=== PATIENT | male | born 1945 | race Caucasian/White ===

== ENCOUNTER 2021-06-04 09:22 | Emergency (ER) | payer OTHER ==
--- OUTSIDE RECORDS SUMMARY | 2021-06-04 09:24 | XMS REPORT | Continuity of Care Document ---
:1945 Author Organization [facility] t Address [address] [place] [address] Dr. Morillo [address] [place] [id number] Care Team Providers Name Role Phone Unavailable Unavailable Unavailable Problems This patient has no known problems. Allergies, Adverse Reactions, Alerts This patient has no known allergies or adverse reactions. Medications This patient has no known medications. Procedures This patient has no known procedures. Results This patient has no known results.
[2021-06-04] MEDS ORDERED: AMOX/K CLAV 875 MG TAB ONE (10:50)
--- NOTE | 2021-06-04 11:17 | EDPHYS ---
Physician Documentation [facility] Name: Curt Crawley Age: 76 yrs Sex: Male : 1945 Arrival Date: 06/04/2021 Time: 09:28 Bed DIS2 Private MD: DARIUS Physician Alexi Guardado HPI: 06/04 11:10 This 76 yrs old Male presents to ER via Ambulatory with complaints of Sinus rosalie Congestion. 11:10 The patient or guardian reports cough, described as mild. Onset: The symptoms/episode rosalie began/occurred 3 day(s) ago. Severity of symptoms: At their worst the symptoms were mild. Modifying factors: The symptoms are alleviated by nothing, the symptoms are aggravated by nothing. Associated signs and symptoms: Pertinent positives: rhinorrhea, sore throat. The patient has experienced a previous episode, last year. Historical: - Allergies: 09:42 No Known Allergies; ww - PMHx: 09:42 skin cancer; ww - PSHx: 09:42 Appendectomy; Repair of inguinal hernia; prostate; ww - Immunization history:: Flu vaccine is up to date. - Social history:: Smoking status: Patient denies any tobacco usage or history of. - Family history:: not pertinent. ROS: 11:10 Constitutional: Negative for fever, chills, and weight loss, Eyes: Negative for injury, rosalie pain, redness, and discharge, Neck: Negative for injury, pain, and swelling, Cardiovascular: Negative for chest pain, palpitations, and edema, Respiratory: Negative for shortness of breath, cough, wheezing, and pleuritic chest pain. 11:10 Abdomen/GI: Negative for abdominal pain, nausea, vomiting, diarrhea, and constipation, Back: Negative for injury and pain, : Negative for injury, bleeding, discharge, and swelling, MS/Extremity: Negative for injury and deformity, Skin: Negative for injury, rash, and discoloration, Neuro: Negative for headache, weakness, numbness, tingling, and seizure. 11:10 ENT: Positive for rhinorrhea, sinus congestion. Exam: 11:14 Constitutional: This is a well developed, well nourished patient who is awake, alert, rosalie and in no acute distress. Head/Face: Normocephalic, atraumatic. Eyes: Pupils equal round and reactive to light, extra-ocular motions intact. Lids and lashes normal. Conjunctiva and sclera are non-icteric and not injected. Cornea within normal limits. Periorbital areas with no swelling, redness, or edema. Neck: Trachea midline, no thyromegaly or masses palpated, and no cervical lymphadenopathy. Supple, full range of motion without nuchal rigidity, or vertebral point tenderness. No Meningismus. Chest/axilla: Normal chest wall appearance and motion. Nontender with no deformity. No lesions are appreciated. Cardiovascular: Regular rate and rhythm with a normal S1 and S2. No gallops, murmurs, or rubs. Normal PMI, no JVD. No pulse deficits. Respiratory: Lungs have equal breath sounds bilaterally, clear to auscultation and percussion. No rales, rhonchi or wheezes noted. No increased work of breathing, no retractions or nasal flaring. Abdomen/GI: Soft, non-tender, with normal bowel sounds. No distension or tympany. No guarding or rebound. No evidence of tenderness throughout. Back: No spinal tenderness. No costovertebral tenderness. Full range of motion. Male : Normal genitalia with no discharge or lesions. Skin: Warm, dry with normal turgor. Normal color with no rashes, no lesions, and no evidence of cellulitis. MS/ Extremity: Pulses equal, no cyanosis. Neurovascular intact. Full, normal range of motion. Neuro: Awake and alert, GCS 15, oriented to person, place, time, and situation. Cranial nerves II-XII grossly intact. Motor strength 5/5 in all extremities. Sensory grossly intact. Cerebellar exam normal. Normal gait. Psych: Awake, alert, with orientation to person, place and time. Behavior, mood, and affect are within normal limits. 11:14 ENT: Mouth: is normal, no acute changes, Lips: normal, moist, Oral mucosa: moist, Posterior pharynx: Tonsils: with erythema, Uvula: normal. 11:14 Neck: External neck: is normal. Vital Signs: 09:40 BP 124 / 86; Pulse 117; Resp 18; Temp 98.1; Pulse Ox 100% on R/A; Weight 71.67 kg; ww Height 5 ft. 8 in. (172.72 cm); Pain 0/10; 11:13 BP 120 / 99; Pulse 100; Resp 18; Pulse Ox 98% ; Pain 0/10; al4 09:40 Body Mass Index 24.02 (71.67 kg, 172.72 cm) ww MDM: 10:00 Patient medically screened. [facility] 11:15 Differential Diagnosis: Influenza Upper Respiratory Infection Sinusitis Pharyngitis rosalie Allergic Rhinitis. Data reviewed: vital signs, nurses notes, lab test result(s). Data interpreted: systems integration analyst: rate is 117 beats/min, rhythm is regular, Pulse oximetry: on room air is 100 %. Counseling: I had a detailed discussion with the patient and/or guardian regarding: the historical points, exam findings, and any diagnostic results supporting the discharge/admit diagnosis, lab results, radiology results, the need for outpatient follow up, for definitive care, a family practitioner. 06/04 10:47 Order name: COVID-19/FLU A+B/RSV (Document "Date of Onset" if Symptomatic) [facility] 06/04 10:48 Order name: COVID-19/FLU A+B/RSV EDMT Administered Medications: 11:15 Drug: Augmentin (Amoxicillin-Clavulanate) 875 mg Route: PO; al4 11:47 Follow up: Response: No adverse reaction al4 Disposition Summary: 06/04/21 11:16 Discharge Ordered Location: Home [facility] Problem: new rosalie Symptoms: have improved rosalie Condition: Stable rosalie Diagnosis - Acute upper respiratory infection, unspecified rosalie - Acute sinusitis, unspecified rosalie Followup: rosalie - With: Private Physician - When: 2 - 3 days - Reason: Recheck today's complaints, Continuance of care, Re-evaluation by your physician Discharge Instructions: - Discharge Summary Sheet rosalie - Sinusitis, Adult rosalie - Upper Respiratory Infection, Adult rosalie - Cool Mist Vaporizer rosalie - Upper Respiratory Infection, Adult, [id number] rosalie - Cough, Adult rosalie Forms: - Medication Reconciliation Form [facility] - Thank You Letter rosalie - Antibiotic Education [facility] - Prescription Opioid Use [facility] Prescriptions: - Bromfed DM 2-30-10 mg/5 mL Oral syrup - take 7.5 milliliter by ORAL route every 6 hours; 160 milliliter; Refills: 0, rosalie Product Selection Permitted - Augmentin 875-125 mg Oral Tablet - take 1 tablet by ORAL route every 12 hours for 10 days; 20 tablet; Refills: 0, [facility] Product Selection Permitted Signatures: DispatchAlexi Louis MD MD cha Ledbetter, Alexis al4 Wood, Whitney, RN RN ww
--- NOTE | 2021-06-04 11:17 | ER ---
Nurse's Notes [facility] Name: Curt Crawley Age: 76 yrs Sex: Male : 1945 Arrival Date: 06/04/2021 Time: 09:28 Bed DIS2 Private MD: Diagnosis: Acute upper respiratory infection, unspecified;Acute sinusitis, unspecified Presentation: 06/04 09:40 Chief complaint: Patient states: Sinus congestion that started on Friday. Coronavirus ww screen: Vaccine status: Patient reports receiving the 2nd dose of the covid vaccine. Client denies travel out of the [place] in the last 14 days. Ebola Screen: Patient negative for fever greater than or equal to 101.5 degrees Fahrenheit, and additional compatible Ebola Virus Disease symptoms Patient denies exposure to infectious person. Patient denies travel to an Ebola-affected area in the 21 days before illness onset. Initial Sepsis Screen: Does the patient meet any 2 criteria? HR > 90 bpm. Does the patient have a suspected source of infection? No. Patient's initial sepsis screen is negative. Risk Assessment: Do you want to hurt yourself or someone else? Patient reports no desire to harm self or others. Onset of symptoms was June 02, 2021. 09:40 Method Of Arrival: Ambulatory ww 09:40 Acuity: JENS 4 ww Triage Assessment: 09:42 General: Appears in no apparent distress. comfortable, well groomed, well developed, ww well nourished, Behavior is calm, cooperative, appropriate for age. Pain: Denies pain. EENT: Reports nasal congestion. Neuro: No deficits noted. Level of Consciousness is awake, alert, obeys commands, Oriented to person, place, time, situation, Appropriate for age Gait is steady, Speech is normal. Cardiovascular: Denies chest pain, shortness of breath, Capillary refill < 3 seconds. Respiratory: Airway is patent Respiratory effort is even, unlabored, Respiratory pattern is regular, symmetrical, GI: No deficits noted. No signs and/or symptoms were reported involving the gastrointestinal system. : No deficits noted. No signs and/or symptoms were reported regarding the genitourinary system. Derm: No deficits noted. No signs and/or symptoms reported regarding the dermatologic system. Skin is intact, Skin is pink, warm \T\ dry. Musculoskeletal: No deficits noted. Historical: - Allergies: 09:42 No Known Allergies; ww - PMHx: 09:42 skin cancer; ww - PSHx: 09:42 Appendectomy; Repair of inguinal hernia; prostate; ww - Immunization history:: Flu vaccine is up to date. - Social history:: Smoking status: Patient denies any tobacco usage or history of. - Family history:: not pertinent. Screenin:05 Abuse screen: Denies threats or abuse. Nutritional screening: No deficits noted. al4 Tuberculosis screening: No symptoms or risk factors identified. 11:46 Fall Risk No fall in past 12 months (0 pts). No IV (0 pts). Ambulatory Aid- None/Bed al4 Rest/Nurse Assist (0 pts). Gait- Normal/Bed Rest/Wheelchair (0 pts) Mental Status- Oriented to own ability (0 pts). Assessment: 10:04 General: Appears in no apparent distress. comfortable, Behavior is calm, cooperative, al4 appropriate for age. Pain: Denies pain. Neuro: Level of Consciousness is awake, alert, obeys commands. Cardiovascular: Heart tones present Capillary refill < 3 seconds Patient's skin is warm and dry. Respiratory: Airway is patent Respiratory effort is even, unlabored, Respiratory pattern is regular, symmetrical, Breath sounds are clear bilaterally. GI: No signs and/or symptoms were reported involving the gastrointestinal system. : No signs and/or symptoms were reported regarding the genitourinary system. EENT: Reports nasal congestion nasal discharge sneezing, coughing, watery eyes. Derm: No signs and/or symptoms reported regarding the dermatologic system. Musculoskeletal: No signs and/or symptoms reported regarding the musculoskeletal system. 11:00 Reassessment: Patient and/or family updated on plan of care and expected duration. Pain al4 level reassessed. Patient is alert, oriented x 3, equal unlabored respirations, skin warm/dry/pink. Patient is alert/active/playful, equal unlabored respirations, skin warm/dry/pink. Patient denies pain at this time. 11:34 Reassessment: please call [phone] with test results. al4 Vital Signs: 09:40 BP 124 / 86; Pulse 117; Resp 18; Temp 98.1; Pulse Ox 100% on R/A; Weight 71.67 kg; ww Height 5 ft. 8 in. (172.72 cm); Pain 0/10; 11:13 BP 120 / 99; Pulse 100; Resp 18; Pulse Ox 98% ; Pain 0/10; al4 09:40 Body Mass Index 24.02 (71.67 kg, 172.72 cm) ED Course: 09:28 Patient arrived in ED. am2 09:42 Triage completed. ww 09:42 Arm band placed on right wrist. ww 09:46 Patient placed in an exam room, on a stretcher. ll1 10:00 Alexi Guardado MD is Attending Physician. rosalie 10:21 Maurizio Araujo is Primary Nurse. al4 11:46 Bed in low position. Call light in reach. patients at bedside. al4 11:46 No provider procedures requiring assistance completed. Patient did not have IV access al4 during this emergency room visit. Administered Medications: 11:15 Drug: Augmentin (Amoxicillin-Clavulanate) 875 mg Route: PO; al4 11:47 Follow up: Response: No adverse reaction al4 Outcome: 11:16 Discharge ordered by . [facility] 11:46 Discharged to home ambulatory, with significant other. al4 11:46 Condition: stable 11:46 Discharge instructions given to patient, significant other, Instructed on discharge instructions, follow up and referral plans. medication usage, Demonstrated understanding of instructions, follow-up care, medications. 11:49 Patient left the ED. al4 Signatures: Alexi Guardado MD MD cha Moreno, Amanda am2 Alyssa Nolasco, LANIE RN [facility] Maurizio Araujo al4 Radha Duncan RN RN Corrections: (The following items were deleted from the chart) 10:22 10:04 EENT: Reports nasal congestion nasal discharge sneezing, coughing. al4 al4 11:43 11:13 BP 120 / 99; Pulse 100bpm; Resp 22bpm; Pulse Ox 98%; Pain 0/10; al4 al4
[2021-06-04 12:08] VITALS: TEMP 98.1
[2021-06-04 12:09] VITALS: BP 120/99; O2SAT 98
[2021-06-04 12:35] LABS: SARS-COV-2 RT PCR NEGATIVE (NEGATIVE)
== END 2021-06-04 11:49 | disposition home or self-care (01) ==
LOC: ER 09:22
DX: J01.90 Acute sinusitis, unspecified (principal); J06.9 Acute upper respiratory infection, unspecified; Z20.822 Contact with and (suspected) exposure to COVID-19
CPT/HCPCS: 0241U; 99283

== ENCOUNTER 2022-08-28 09:25 | Emergency (ER) | payer OTHER ==
--- OUTSIDE RECORDS SUMMARY | 2022-08-28 09:30 | XMS REPORT | Continuity of Care Document ---
:1945 Author Organization [facility] t Address [address] [place] [id number] Care Team Providers Name Role Phone Unavailable Unavailable Unavailable Problems This patient has no known problems. Allergies, Adverse Reactions, Alerts This patient has no known allergies or adverse reactions. Medications This patient has no known medications. Procedures This patient has no known procedures. Results This patient has no known results.
--- NOTE | 2022-08-28 12:11 | EDPHYS ---
Physician Documentation [facility] Name: Curt Crawley Age: 77 yrs Sex: Male : 1945 Arrival Date: 08/28/2022 Time: 09:30 Bed 11 Private MD: ED Physician Allan Gonzalez HPI: 08/28 09:58 This 77 yrs old Male presents to ER via Ambulatory with complaints of Rib pain. sb4 09:58 Onset: The symptoms/episode began/occurred 5 day(s) ago. Associated signs and symptoms: sb4 Pertinent positives: The patient does not have any pertinent positive signs or symptoms associated with pediatric illness. Pertinent negatives: abdominal pain, chest pain, fever, headache, shortness of breath, sore throat, wheezing. Modifying factors: The patient symptoms are alleviated by nothing, the patient symptoms are aggravated by coughing, movement. The patient has not experienced similar symptoms in the past. The patient has been recently seen by a physician: in [place]. Patient states 1 week ago, his allergies were flaring up. He went to [place] where he tested negative for covid/flu and was prescribed claritin. He states the allergy like symptoms have since resolved but the repetitive coughing and sneezing have caused his left lower ribs to hurt.. Historical: - Allergies: 09:48 No Known Allergies; aa5 - PMHx: 09:48 skin cancer; aa5 - PSHx: 09:48 Appendectomy; prostate; Repair of inguinal hernia; aa5 - Immunization history:: Adult Immunizations unknown. - Social history:: Smoking status: Patient denies any tobacco usage or history of. ROS: 09:58 Constitutional: Negative for fever, chills, and weight loss, Eyes: Negative for injury, sb4 pain, redness, and discharge, ENT: Negative for injury, pain, and discharge, Cardiovascular: Negative for chest pain, palpitations, and edema, Respiratory: Negative for shortness of breath, cough, wheezing, and pleuritic chest pain, Abdomen/GI: Negative for abdominal pain, nausea, vomiting, diarrhea, and constipation, Skin: Negative for injury, rash, and discoloration, Neuro: Negative for headache, weakness, numbness, tingling, and seizure. 09:58 Back: Positive for pain at rest, pain with movement, Negative for injury or acute deformity, decreased range of motion. 09:58 MS/extremity: Positive for left sided rib pain. Exam: 09:58 Constitutional: This is a well developed, well nourished patient who is awake, alert, sb4 and in no acute distress. Head/Face: Normocephalic, atraumatic. Eyes: Extra-ocular motions intact. Periorbital areas with no swelling, redness, or edema. ENT: Mucous membranes moist. Cardiovascular: Regular rate and rhythm with a normal S1 and S2. Respiratory: Lungs have equal breath sounds bilaterally, clear to auscultation and percussion. No rales, rhonchi or wheezes noted. No increased work of breathing, no retractions or nasal flaring. Abdomen/GI: Soft, non-tender, no distension. 09:58 Chest/axilla: Exam negative for acute changes, abrasion, deformity, flail chest, Inspection: normal, Palpation: is normal. 09:58 Musculoskeletal/extremity: Exam is negative for acute changes, abrasion, deformity, ecchymosis, edema, erythema, swelling. Vital Signs: 09:46 BP 138 / 93; Pulse 108; Resp 16 S; Temp 98.4(TE); Pulse Ox 98% on R/A; Weight 62.14 kg aa5 (R); Height 5 ft. 8 in. (R); 09:46 Body Mass Index 20.83 (62.14 kg, 172.72 cm) aa5 MDM: 09:52 Patient medically screened. sb4 09:58 Differential diagnosis: rib fracture, pleurisy, muscle strain. sb4 12:07 ED course: awaiting radiology read. images taken at 1033.. sb4 12:08 Independent interpretation of the following test(s) in the Emergency Department sb4 Radiology Department Ultrasound: My interpretation is my interpretation of the rib series images is no acute fracture. 03 09:58 Order name: Ribs Left XRAY sb4 Administered Medications: No medications were administered Disposition Summary: 08/28/22 12:10 Discharge Ordered Location: Home sb4 Problem: an ongoing problem sb4 Symptoms: are unchanged sb4 Condition: Stable sb4 Diagnosis - Strain of muscle and tendon of front wall of thorax sb4 Followup: sb4 - With: Private Physician - When: 2 - 3 days - Reason: Recheck today's complaints, Re-evaluation by your physician Discharge Instructions: - Discharge Summary Sheet sb4 - Muscle Strain, [id number] sb4 Forms: - Antibiotic Education sb4 - Prescription Opioid Use sb4 - Medication Reconciliation Form sb4 - Thank You Letter sb4 Signatures: Dispatcher [employer] Saadia Gunter, RN RN aa5 Princess Duke, ADA CABALLERO sb4
--- NOTE | 2022-08-28 12:11 | ER ---
Nurse's Notes [facility] Name: Curt Crawley Age: 77 yrs Sex: Male : 1945 Arrival Date: 08/28/2022 Time: 09:30 Bed 11 Private MD: Diagnosis: Strain of muscle and tendon of front wall of thorax Presentation: 08/28 09:46 Chief complaint: Patient states: "I was sneezing the other day and went to the [place] and aa5 they gave me Claritin and I've been better since then but the sneezing hurt my ribs and I think I twisted wrong or something". Coronavirus screen: At this time, the client does not indicate any symptoms associated with coronavirus-19. Ebola Screen: Patient denies travel to an Ebola-affected area in the 21 days before illness onset. Initial Sepsis Screen: Does the patient meet any 2 criteria? HR > 90 bpm. Does the patient have a suspected source of infection? No. Patient's initial sepsis screen is negative. Risk Assessment: Do you want to hurt yourself or someone else? Patient reports no desire to harm self or others. Onset of symptoms was August 2022. 09:46 Acuity: JENS 4 aa5 09:46 Method Of Arrival: Ambulatory aa5 Historical: - Allergies: 09:48 No Known Allergies; aa5 - PMHx: 09:48 skin cancer; aa5 - PSHx: 09:48 Appendectomy; prostate; Repair of inguinal hernia; aa5 - Immunization history:: Adult Immunizations unknown. - Social history:: Smoking status: Patient denies any tobacco usage or history of. Vital Signs: 09:46 BP 138 / 93; Pulse 108; Resp 16 S; Temp 98.4(TE); Pulse Ox 98% on R/A; Weight 62.14 kg aa5 (R); Height 5 ft. 8 in. (R); 09:46 Body Mass Index 20.83 (62.14 kg, 172.72 cm) aa5 ED Course: 09:30 Patient arrived in ED. mr 09:31 Princess Duke [facility] sb4 09:32 Allan Gonzalez MD is Attending Physician. sb4 09:46 Arm band placed on. aa5 09:48 Triage completed. aa5 10:51 Ribs Left XRAY In Process Unspecified. EDMS Administered Medications: No medications were administered Outcome: 12:10 Discharge ordered by MD. yap Signatures: Dispatcher [employer] EDOmaira Zamora DkSaadia, RN RN aa5 Princess Duke, ADA PAIsaac yap
--- NOTE | 2022-08-28 12:23 | RAD REPORT ---
EXAM DESCRIPTION: RAD - Ribs Left - 08/28/2022 10:49 am CLINICAL HISTORY: PAIN COMPARISON: Chest Pa And Lat (2 Views) dated 05/07/2019 TECHNIQUE: Left ribs, 4 views. FINDINGS: No displaced rib fracture is evident. No aggressive rib lesion. No underlying pneumothorax, effusion, infiltrate or pulmonary contusion. IMPRESSION: No acute displaced left rib fractures.
[2022-08-28 15:14] VITALS: BP 138/93; TEMP 98.4; O2SAT 98
== END 2022-08-28 12:27 | disposition home or self-care (01) ==
LOC: ER 09:25
DX: S29.011A Strain of muscle and tendon of front wall of thorax, initial encounter (principal)

== ENCOUNTER 2022-10-28 07:27 | Emergency (ER) | payer OTHER ==
--- OUTSIDE RECORDS SUMMARY | 2022-10-28 07:29 | XMS REPORT | Continuity of Care Document ---
:1945 Author Organization [facility] t Address [address] [place] [address] [address] [place] [address] Care Team Providers Name Role Phone Pcp, Patient Does Not Have A Primary Care Physician +[id number] SAMAN LEMONS Attending Clinician Unavailable Saman Morrell Attending Clinician Payers Payer Name Policy Type Policy Number Effective Date Expiration Date S lukas MEDICARE PART A [id number] 2011 \T\ B 00:00:00 Problems This patient has no known problems. Allergies, Adverse Reactions, Alerts Allergy Allergy Status Severity Reaction(s) Onset Inactive Treating Comm ents Source Name Type Date Date Clinician NO KNOWN Drug Active Univers ALLERGIE Class ity of S [facility] Social History Social Habit Start Date Stop Date Quantity Comments Source History of Cigarette Smoker Universi ty of tobacco use [facility] Exposure to 2022-10-14 2022-10-24 Not sure University SARS-CoV-2 00:00:00 14:55:00 [facility] (event) [place] Alcohol intake 2022-10-24 2022-10-24 Current University of 00:00:00 00:00:00 non-drinker of [facility] alcohol (finding) Branch Tobacco use and 2015-02-10 2015-02-10 Smokeless tobacco Un iversity of exposure 00:00:00 00:00:00 non-user [facility] Sex Ass[birth year] At [birth year] Universit y of 00:00:00 00:00:00 [facility] Smoking Status Start Date Stop Date Source Ex-smoker 2015-02-10 00:00:00 2015-02-10 00:00:00 [facility] Medical Branch Medications Ordered Filled Start Stop Current Ordering Indication Dosage Frequency Signature Comments Components Source Medication Medication Date Date Medication? Clinician (SIG) Name Name diandra 2022- No 1000mg 1,000 mg, Univers en 10-24 05-11 Oral, ity of (TYLENOL) 21:45: 21:09 ONCE, [place] :00 dose, On Medical 1,000 mg [place] Branch 10/24/22 at 1645, Routine Diclofenac Yes [id number] Apply to [facility] Sodium 10-24 [id number] area(s) 2 ity of (VOLTAREN) 00:00: (two) [place] 1 % gel 00 times Medical daily. Branch traMADol 50 2018-06 Yes [id number] 50mg Take 1 Univers mg tablet 2-06 tablet by ity o f 00:00: mouth [place] 00 every 6 Medical (six) Branch hours as needed (pain). proMETHazin 2018-06 Yes [id number] 25mg Take 1 Univers e 25 mg 2-06 tablet by ity of tablet 00:00: mouth [place] 00 every 6 Medical (six) Branch hours as needed for Nausea and Vomiting (N/V). Miconazole Yes Apply to [facility] vers Nitrate 2 % 2-06 area(s). ity of AerP 15:41: [address] finasteride Yes 5mg Take 5 mg U nivers (PROSCAR) 5 2-06 by mouth ity of mg tablet 14:38: daily. [address] atorvastati Yes 40mg Take 40 mg Univers n (LIPITOR) 2-06 by mouth ity of 40 mg 14:38: at [place] tablet 53 bedtime. Medical Branch tamsulosin Yes Take by [facility] ers (FLOMAX) 2-06 mouth ity of 0.4 mg 24 14:38: daily. [facility] 53 Medical Branch OMEPRAZOLE Yes Take by [facility] ers ORAL 2-06 mouth. ity of 14:38: [address] Branch desonide Yes Apply to [facility] (DESOWEN) 9-27 affected ity of 0.05 % 14:47: area(s). [place] cream 32 [facility] methylPREDN Yes 84mg Take 21 Uni vers ISolone 9-27 tablets by ity of (MEDROL, 00:00: mouth [place] JOSE ALBERTO,) 4 mg 00 SEE-INSTRU Med ical tablets CTIONS. Branch follow package directions KCL Yes 20meq Take 1 Univers (KLOR-CON 7-10 tablet by ity o f M20) 20 mEq 00:00: mouth 2 [place] tablet 00 (two) Medical times Branch daily. gabapentin Yes [id number] 300mg Take 1 Univers (NEURONTIN) 5-11 capsule by it y of 300 mg 00:00: mouth 3 [place] capsule 00 (three) Medical times Branch daily. ibuprofen Yes 400mg Take 1 Tab U nivers (MOTRIN) 8-28 by mouth ity of 400 mg 00:00: every 6 [place] tablet 00 (six) Medical hours as Branch needed for Pain (scale 4-6). nystatin Yes [id number] Apply to U nivers (MYCOSTATIN 8-28 area(s) 2 ity of ) 100,000 00:00: (two) [place] unit/gram 00 times Medical cream daily. [place] Immunizations Ordered Filled Immunization Date Status Comments [facility] e Immunization Name Name Influenza Virus 2016-03-20 Completed Universit y of Vaccine 00:00:00 [facility] Vital Signs Vital Name Observation Time Observation Value Comments Source Systolic blood 2022-10-24 19:57:00 133 mm[Hg] Univer sity of pressure [facility] Diastolic blood 2022-10-24 19:57:00 99 mm[facility]Hg] [facility] 2022-10-24 19:57:00 109 /min [facility] Body temperature 2022-10-24 19:57:00 36.83 Ritu [facility] rate 2022-10-24 19:57:00 18 /min [facility] Body height 2022-10-24 19:57:00 172.7 cm [facility] Body weight 2022-10-24 19:57:00 61.236 kg [facility] BMI 2022-10-24 19:57:00 20.53 kg/m2 [facility] Oxygen saturation in 2022-10-24 19:57:00 98 /min University Arterial blood by [facility] Pulse oximetry Branch Procedures Procedure Date / Time Performed Performing Clinician Sourc e CONSENT/REFUSAL FOR 2022-10-24 19:55:51 Doctor Unassigned, No Un [facility] DIAGNOSIS AND Name Medical Branch TREATMENT Encounters Start End Encounter Admission Attending Care Care Encounter Source Date/Time Date/Time Type Type Clinicians Facility Department ID 2022-10-24 2022-10-24 [facility] [id number] [facility] 14:59:00 16:21:00 SAMAN ity of [facility] 2022-10-24 2022-10-24 [facility] [id number] [facility] 14:59:00 16:21:00 Saman VELAZQUEZ [id number] ity [facility] [id number] [facility] [id number] [facility] 084 Branch Results This patient has no known results.
--- NOTE | 2022-10-28 08:22 | RAD REPORT ---
EXAM DESCRIPTION: US - Extrem Venous W Compress Hua - 10/28/2022 8:11 am CLINICAL HISTORY: PAIN COMPARISON: No comparisons TECHNIQUE: Real-time sonographic evaluation of the lower extremity deep venous systems was performed using color Doppler, grayscale, and compression. FINDINGS: Bilateral lower extremities. Normal compressibility, flow augmentation, phasic flow and spontaneous flow is identified in both the left and right lower extremity deep venous systems. No intraluminal filling defects seen. IMPRESSION: No DVT in either lower extremity.
--- NOTE | 2022-10-28 08:23 | RAD REPORT ---
EXAM DESCRIPTION: US - Lower Extremity Arterial Bilat - 10/28/2022 8:11 am CLINICAL HISTORY: Swelling, pain COMPARISON: None FINDINGS: The common femoral, superficial femoral and popliteal arteries bilaterally demonstrate triphasic wave forms The posterior tibial and dorsalis pedis arteries demonstrate biphasic waveforms bilaterally. IMPRESSION: No flow limiting arterial stenosis within either lower extremity.
--- NOTE | 2022-10-28 08:32 | EDPHYS ---
Physician Documentation [facility] Name: Curt Crawley Age: 77 yrs Sex: Male : 1945 Arrival Date: 10/28/2022 Time: 07:27 Bed 5 Private MD: ED Physician Jeffrey Palomo HPI: 10/28 07:45 This 77 yrs old Male presents to ER via Ambulatory with complaints of Feet Swelling. rn 07:45 The patient presents with pain. The complaints affect the left foot, right foot. Onset: rn The symptoms/episode began/occurred 3 day(s) ago. Modifying factors: The symptoms are alleviated by nothing, the symptoms are aggravated by weight bearing, movement. Associated signs and symptoms: Pertinent negatives: calf tenderness, fever, swelling, warmth, weakness. Severity of symptoms: At their worst the symptoms were mild, in the emergency department the symptoms are unchanged. The patient has not experienced similar symptoms in the past. The patient has not recently seen a physician. Pt reports bilateral foot pain, no injury, no fever, no swelling. Reports is sick and has been on his feet more than usual, hurts on bottom of feet. No fever. Went to outside ER this weekend, given diclofenac ointment, is to be discharged soon and wants to make sure he is ok and feels better to take care of her. . Historical: - Allergies: 07:40 No Known Allergies; iw - PMHx: 07:34 skin cancer; iw - PSHx: 07:34 Appendectomy; prostate; Repair of inguinal hernia; iw - Immunization history:: Adult Immunizations. - Family history:: not pertinent. - Social history:: Smoking status: Patient denies any tobacco usage or history of. - Hospitalizations: : No recent hospitalization is reported. ROS: 07:45 Constitutional: Negative for fever, chills, and weight loss, Cardiovascular: Negative rn for chest pain, palpitations, and edema, Respiratory: Negative for shortness of breath, cough, wheezing, and pleuritic chest pain, Abdomen/GI: Negative for abdominal pain, nausea, vomiting, diarrhea, and constipation, Back: Negative for injury and pain, MS/Extremity: + pain to bilateral feet Skin: Negative for injury, rash, and discoloration, Neuro: Negative for headache, weakness, numbness, tingling, and seizure. Exam: 07:45 Constitutional: This is a well developed, well nourished patient who is awake, alert, rn and in no acute distress. Cardiovascular: Regular rate and rhythm. No pulse deficits. Respiratory: No increased work of breathing, no retractions or nasal flaring. Abdomen/GI: Soft, non-tender Skin: Warm, dry, no cyanosis MS/ Extremity: NV intact. Full, normal range of motion. Equal circumference. NO cyanosis Neuro: Awake and alert, GCS 15 Vital Signs: 07:35 Resp 16; Temp 98.1; Pulse Ox 100% on R/A; iw 07:36 BP 152 / 100; Pulse 99; Resp 16; Temp 98.2; Pulse Ox 98% on R/A; iw MDM: 07:30 Patient medically screened. rn 08:29 Differential diagnosis: sprain, DVT, poor circulation, PVD. Data reviewed: vital signs, rn nurses notes, radiologic studies, doppler, ultrasound, and as a result, I will discharge patient. Counseling: I had a detailed discussion with the patient and/or guardian regarding: the historical points, exam findings, and any diagnostic results supporting the discharge/admit diagnosis, radiology results, the need for outpatient follow up, to return to the emergency department if symptoms worsen or persist or if there are any questions or concerns that arise at home. Special discussion: I discussed with the patient/guardian in detail that at this point there is no indication for admission to the hospital. It is understood, however, that if the symptoms persist or worsen the patient needs to return immediately for re-evaluation. ED course: NO acute findings on u/s of legs. No trauma. Will dc home with OTC meds and return precautions as well as pcp f/u. . 10/28 07:44 Order name: Extrem Venous W Compression Hua US; Complete Time: 08:29 rn 10/28 07:44 Order name: Lower Extremity Arterial Bilat US; Complete Time: : rn Administered Medications: No medications were administered Disposition Summary: 10/28/22 08:32 Discharge Ordered Location: Home rn Problem: new rn Symptoms: are unchanged rn Condition: Stable rn Diagnosis - Pain in left foot rn - Pain in right foot rn Followup: rn - With: Private Physician - When: As needed - Reason: Recheck today's complaints, Re-evaluation by your physician Discharge Instructions: - Discharge Summary Sheet rn - Musculoskeletal Pain rn - Foot Pain rn Forms: - Medication Reconciliation Form rn - Thank You Letter rn - Antibiotic rn [facility] - Prescription Opioid Use rn Signatures: Dispatcher [employer] Sveta Rodriguez RN RN iw Nieto, Roman, MD MD rn Prokisch, Amanda, RN RN ap3
--- NOTE | 2022-10-28 08:32 | ER ---
Nurse's Notes [facility] Name: Curt Crawley Age: 77 yrs Sex: Male : 1945 Arrival Date: 10/28/2022 Time: 07:27 Bed 5 Private MD: Diagnosis: Pain in left foot;Pain in right foot Presentation: 10/28 07:36 Chief complaint: Patient states: juan antonio feet pain and swelling, he was seen at [facility] iw on October 24 and was given diclofenac gel. Coronavirus screen: At this time, the client does not indicate any symptoms associated with coronavirus-19. Ebola Screen: Patient negative for fever greater than or equal to 101.5 degrees Fahrenheit, and additional compatible Ebola Virus Disease symptoms Patient denies exposure to infectious person. Patient denies travel to an Ebola-affected area in the 21 days before illness onset. No symptoms or risks identified at this time. Initial Sepsis Screen: Does the patient meet any 2 criteria? No. Patient's initial sepsis screen is negative. Does the patient have a suspected source of infection? No. Patient's initial sepsis screen is negative. Risk Assessment: Do you want to hurt yourself or someone else? Patient reports no desire to harm self or others. Onset of symptoms was October 28, 2022. 07:36 Method Of Arrival: Ambulatory iw 07:36 Acuity: JENS 3 iw Historical: - Allergies: 07:40 No Known Allergies; iw - PMHx: 07:34 skin cancer; iw - PSHx: 07:34 Appendectomy; prostate; Repair of inguinal hernia; iw - Immunization history:: Adult Immunizations. - Family history:: not pertinent. - Social history:: Smoking status: Patient denies any tobacco usage or history of. - Hospitalizations: : No recent hospitalization is reported. Screenin:50 [facility] ED Fall Risk Assessment (Adult) History of falling in the last 3 months, ap3 including since admission No falls in past 3 months (0 pts). Abuse screen: Denies threats or abuse. Nutritional screening: No deficits noted. Tuberculosis screening: No symptoms or risk factors identified. Assessment: 07:50 General: Appears in no apparent distress. Behavior is calm, cooperative, appropriate ap3 for age. Pain: Complains of pain in right foot and left foot. Neuro: Level of Consciousness is awake, alert, obeys commands, Oriented to person, place, time, situation. Cardiovascular: Pulses are palpable in right dorsalis pedis artery and left dorsalis pedis artery. Respiratory: Airway is patent Respiratory effort is even, unlabored, Respiratory pattern is regular, symmetrical. Vital Signs: 07:35 Resp 16; Temp 98.1; Pulse Ox 100% on R/A; iw 07:36 BP 152 / 100; Pulse 99; Resp 16; Temp 98.2; Pulse Ox 98% on R/A; iw ED Course: 07:29 Patient arrived in ED. rg4 07:30 Jeffrey Palomo MD is Attending Physician. rn 07:39 Triage completed. iw 07:40 Arm band placed on. iw 07:45 Alysha Neely RN is Primary Nurse. ap3 07:50 Patient has correct armband on for positive identification. Placed in gown. Bed in low ap3 position. Call light in reach. Side rails up X 1. Pulse ox on. NIBP on. Door closed. Noise minimized. Warm blanket given. 07:51 ultrasound at bedside. ap3 08:13 Extrem Venous W Compression Juan Antonio US In Process Unspecified. EDMS 08:13 Lower Extremity Arterial Bilat US In Process Unspecified. EDMS 08:47 No provider procedures requiring assistance completed. Patient did not have IV access ap3 during this emergency room visit. Administered Medications: No medications were administered Medication: 07:50 VIS not applicable for this client. ap3 Outcome: 08:32 Discharge ordered by . rn 08:47 Discharged to home ambulatory. ap3 08:47 Condition: good 08:47 Discharge instructions given to patient, Instructed on discharge instructions, follow up and referral plans. Demonstrated understanding of instructions, follow-up care. 08:55 Patient left the ED. ap3 Signatures: Dispatcher [employer] Sveta Rodriguez RN RN Jeffrey Palomo MD MD rn Garcia, Rubi [facility] Alysha Neely RN RN ap3
[2022-10-28 09:01] VITALS: BP 152/100; TEMP 98.2; O2SAT 98
== END 2022-10-28 08:55 | disposition home or self-care (01) ==
LOC: ER 07:27
DX: M79.672 Pain in left foot (principal); M79.671 Pain in right foot
CPT/HCPCS: 93925; 93970

== ENCOUNTER 2022-11-03 09:24 | Emergency (ER) | payer OTHER ==
--- OUTSIDE RECORDS SUMMARY | 2022-11-03 09:27 | XMS REPORT | Continuity of Care Document ---
:[address] [facility] t Address [address] [place] [address] [address] [place] [address] Care Team Providers Name Role Phone Pcp, Patient Does Not Have A Primary Care Physician +1-000-0 00-0000 SAMAN LEMONS Attending Clinician Unavailable Saman Morrell Attending Clinician Payers Payer Name Policy Type Policy Number Effective Date Expiration Date Mraal gaytan MEDICARE PART A [id number] 2011 \T\ B 00:00:00 Problems This patient has no known problems. Allergies, Adverse Reactions, Alerts Allergy Allergy Status Severity Reaction(s) Onset Inactive Treating Comm ents Source Name Type Date Date Clinician NO KNOWN Drug Active Univers ALLERGIE Class ity of S [facility] Social History Social Habit Start Date Stop Date Quantity Comments Source History of Cigarette Smoker Universi ty of tobacco use [facility] Exposure to 2022-10-14 2022-10-24 Not sure University SARS-CoV-2 00:00:00 14:55:[address] [facility] (event) [place] Alcohol intake 2022-10-24 2022-10-24 Current University of 00:00:00 00:00:00 non-drinker of [facility] alcohol (finding) Branch Tobacco use and 2015-02-10 2015-02-10 Smokeless tobacco Un iversity of exposure 00:00:00 00:00:00 non-user [facility] Sex Assigned At [birth year] Universit y of 00:00:00 00:00:00 [facility] Smoking Status Start Date Stop Date Source Ex-smoker 2015-02-10 00:00:00 2015-02-10 00:00:00 [facility] [place] [facility] Medications Ordered Filled Start Stop Current Ordering Indication Dosage Frequency Signature Comments Components Source Medication Medication Date Date Medication? Clinician (SIG) Name Name diandra 2022- No 1000mg 1,000 mg, Univers en 10-24 05-11 Oral, ity of (TYLENOL) 21:45: 21:09 ONCE, 1 [place] tablet [place] :00 dose, On Medical 1,000 mg [place] Branch 10/24/22 at 1645, Routine Diclofenac Yes [id number] Apply to [facility] Sodium 10-24 [id number] area(s) 2 ity of (VOLTAREN) 00:00: (two) [place] 1 % gel 00 times Medical daily. Branch traMADol 50 2018-06 Yes [id number] 50mg Take 1 Univers mg tablet 2-06 tablet by ity o f 00:00: mouth [place] 00 every 6 Medical (six) Branch hours as needed (pain). proMETHazin 2018-06 Yes [id number] 25mg Take 1 Univers e 25 mg 2-06 tablet by ity of tablet 00:00: mouth [place] 00 every 6 Medical (six) Branch hours as needed for Nausea and Vomiting (N/V). Miconazole Yes Apply to [facility] vers Nitrate 2 % 2-06 area(s). ity of AerP 15:41: [address] finasteride Yes 5mg Take 5 mg U nivers (PROSCAR) 5 2-06 by mouth ity of mg tablet 14:38: daily. [address] atorvastati Yes 40mg Take 40 mg Univers n (LIPITOR) 2-06 by mouth ity of 40 mg 14:38: at [place] tablet 53 bedtime. Medical Branch tamsulosin Yes Take by [facility] ers (FLOMAX) 2-06 mouth ity of 0.4 mg 24 14:38: daily. [place] [address] Medical Branch OMEPRAZOLE Yes Take by [facility] ers ORAL 2-06 mouth. ity of 14:38: [address] Branch desonide Yes Apply to [place] [facility] (DESOWEN) 9-27 affected ity of 0.05 % 14:47: area(s). [place] cream 32 [facility] methylPREDN Yes 84mg Take 21 Uni vers ISolone 9-27 tablets by ity of (MEDROL, 00:00: mouth [place] JOSE ALBERTO,) 4 mg 00 SEE-INSTRU Med ical tablets CTIONS. Branch follow package directions KCL Yes 20meq Take 1 Univers (KLOR-CON 7-10 tablet by ity o f M20) 20 mEq 00:00: mouth 2 [place] tablet 00 (two) Medical times Branch daily. gabapentin Yes [id number] 300mg Take 1 Univers (NEURONTIN) 5-11 capsule by it y of 300 mg 00:00: mouth 3 [place] capsule 00 (three) Medical times Branch daily. ibuprofen Yes 400mg Take 1 Tab U nivers (MOTRIN) 8-28 by mouth ity of 400 mg 00:00: every 6 [place] tablet 00 (six) Medical hours as Branch needed for Pain (scale 4-6). nystatin Yes [id number] Apply to U nivers (MYCOSTATIN 8-28 area(s) 2 ity of ) 100,000 00:00: (two) [place] unit/gram 00 times Medical cream daily. [place] Immunizations Ordered Filled Immunization Date Status Comments [facility] e Immunization Name Name Influenza Virus 2016-03-20 Completed Universit y of Vaccine 00:00:00 [facility] Vital Signs Vital Name Observation Time Observation Value Comments Source Systolic blood 2022-10-24 19:57:00 133 mm[Hg] Univer sity of pressure [facility] Diastolic blood 2022-10-24 19:57:00 99 mm[Hg] [facility] 2022-10-24 19:57:00 109 /min [facility] Body temperature 2022-10-24 19:57:00 36.83 Ritu [facility] Res[facility] rate 2022-10-24 19:57:00 18 /min [facility] Body height 2022-10-24 19:57:00 172.7 cm [facility] Body weight 2022-10-24 19:57:00 61.236 kg [facility] BMI 2022-10-24 19:57:00 20.53 kg/m2 [facility] Oxygen saturation in 2022-10-24 19:57:00 98 /min University Arterial blood by [facility] Pulse oximetry Branch Procedures Procedure Date / Time Performed Performing Clinician Sourc e CONSENT/REFUSAL FOR 2022-10-24 19:55:51 Doctor Unassigned, No Un [facility] DIAGNOSIS AND Name Medical Branch TREATMENT Encounters Start End Encounter Admission Attending Care Care Encounter Source Date/Time Date/Time Type Type Clinicians Facility Department ID 2022-10-24 2022-10-24 [facility] [id number] [facility] 14:59:00 16:21:00 SAMAN ity of [facility] 2022-10-24 2022-10-24 Emergency [facility] [id number] [facility] 14:59:00 16:21:00 Saman VELAZQUEZ [id number] ity [facility] [id number] [facility] [id number] [facility] 084 Branch Results This patient has no known results.
--- NOTE | 2022-11-03 09:41 | EDPHYS ---
Physician Documentation [facility] Name: Curt Crawley Age: 77 yrs Sex: Male : 1945 Arrival Date: 11/03/2022 Time: 09:24 Bed IW1 Private MD: ED Physician Pascual Starr HPI: 11/03 09:47 This 77 yrs old Male presents to ER via Ambulatory with complaints of Foot Pain. [facility] 09:47 The patient presents with pain, that is acute. This is a 77 year old male with a jmm history of skin cancer that presents to the ED with complaints of bilateral foot pain beginning approx 3 weeks ago. patient states his recently has become more ill, requiring him to walk around more. Has been to the ED previously with negative US of legs and prescribed antiinflammatory gel with little relief. Denies any change in the pain. Denies fever. . Historical: - Allergies: 09:31 No Known Allergies; iw - PMHx: 09:31 skin cancer; iw - PSHx: 09:31 Appendectomy; prostate; Repair of inguinal hernia; iw - Social history:: Smoking status: Patient denies any tobacco usage or history of. ROS: 09:47 Constitutional: Negative for fever, chills, and weight loss, Cardiovascular: Negative jm for chest pain, palpitations, and edema, Respiratory: Negative for shortness of breath, cough, wheezing, and pleuritic chest pain. 09:47 MS/extremity: Positive for pain. 09:47 All other systems are negative. Exam: 09:47 Constitutional: This is a well developed, well nourished patient who is awake, alert, jmm and in no acute distress. Head/Face: atraumatic. Eyes: EOMI, no conjunctival erythema appreciated ENT: Moist Mucus Membranes Neck: Trachea midline, Supple Chest/axilla: Normal chest wall appearance and motion. Cardiovascular: Regular rate and rhythm. No edema appreciated Respiratory: Normal respirations, no respiratory distress appreciated Abdomen/GI: Non distended Back: Normal ROM Skin: General appearance color normal 09:47 Musculoskeletal/extremity: pain elicited on palpation of the plantar foot bilaterally, diffusely. Compartments are soft, full dorsalis pulse. No erythema or induration appreciated. NVI. 09:47 Skin: Appearance: Color: normal in color. 09:47 Neuro: Orientation: is normal, Mentation: is normal, Memory: is normal. 09:47 Psych: Behavior/mood is pleasant, cooperative. Vital Signs: 09:30 BP 145 / 100; Pulse 117; Resp 18; Temp 98.5; Pulse Ox 97% on R/A; Weight 61.23 kg; iw Height 5 ft. 8 in. ; Pain 7/10; 09:30 Body Mass Index 20.53 (61.23 kg, 172.72 cm) iw 09:30 Pain Scale: Adult iw MDM: 09:40 Patient medically screened. [facility] Administered Medications: No medications were administered Disposition Summary: 11/03/22 09:41 Discharge Ordered Location: Home [facility] Condition: Stable [facility] Diagnosis - Foot pain, bilateral jmm Followup: [facility] - With: Oliver Qiu DPM - When: 2 - 3 days - Reason: Recheck today's complaints, Continuance of care, Re-evaluation by your physician Discharge Instructions: - Discharge Summary Sheet [facility] - Plantar Fasciitis [facility] - Plantar Fasciitis Rehab [facility] Forms: - Medication Reconciliation Form [facility] - Thank You Letter [facility] - Antibiotic Education [facility] - Prescription Opioid Use [facility] Prescriptions: - Medrol (Bright) 4 mg Oral Tablets, Dose Pack - take 1 tablet by ORAL route as directed - follow package instructions; 1 [facility] packet; Refills: 0, Product Selection Permitted - orphenadrine citrate 100 mg Oral Tablet Sustained Release - take 1 tablet by ORAL route 2 times per day As needed; 20 tablet; Refills: 0, [facility] Product Selection Permitted Signatures: Oscar Medley PA PA jmm Williams, Irene, RN RN iw
--- NOTE | 2022-11-03 09:41 | ER ---
Nurse's Notes [facility] Name: Curt Crawley Age: 77 yrs Sex: Male : 1945 Arrival Date: 11/03/2022 Time: 09:24 Bed IW1 Private MD: Diagnosis: Foot pain, bilateral Presentation: 11/03 09:30 Chief complaint: Patient states: juan antonio burning foot pain, was seen here recently for same iw symptoms, had US done and has been taking aleve. Coronavirus screen: At this time, the client does not indicate any symptoms associated with coronavirus-19. Ebola Screen: Patient negative for fever greater than or equal to 101.5 degrees Fahrenheit, and additional compatible Ebola Virus Disease symptoms Patient denies exposure to infectious person. Patient denies travel to an Ebola-affected area in the 21 days before illness onset. No symptoms or risks identified at this time. Initial Sepsis Screen: Does the patient meet any 2 criteria? No. Patient's initial sepsis screen is negative. Does the patient have a suspected source of infection? No. Patient's initial sepsis screen is negative. Risk Assessment: Do you want to hurt yourself or someone else? Patient reports no desire to harm self or others. Onset of symptoms was October 19, 2022. 09:30 Method Of Arrival: Ambulatory iw 09:30 Acuity: JENS 4 iw Historical: - Allergies: 09:31 No Known Allergies; iw - PMHx: 09:31 skin cancer; iw - PSHx: 09:31 Appendectomy; prostate; Repair of inguinal hernia; iw - Social history:: Smoking status: Patient denies any tobacco usage or history of. Screenin:[address] [facility] ED Fall Risk Assessment (Adult) History of falling in the last 3 months, iw including since admission. Abuse screen: Denies threats or abuse. Denies injuries from another. Nutritional screening: No deficits noted. Tuberculosis screening: No symptoms or risk factors identified. Assessment: 09:35 General: Appears in no apparent distress. Behavior is calm, cooperative. Pain: iw Complains of pain in right foot and left foot. Neuro: Level of Consciousness is awake, alert, obeys commands, Oriented to person, place, time, situation, Moves all extremities. Full function. Cardiovascular: Patient's skin is warm and dry. Respiratory: Respiratory effort is even, unlabored, Respiratory pattern is regular. Derm: Skin is intact, is healthy with good turgor. Musculoskeletal: Range of motion: intact in all extremities. Vital Signs: 09:30 BP 145 / 100; Pulse 117; Resp 18; Temp 98.5; Pulse Ox 97% on R/A; Weight 61.23 kg; iw Height 5 ft. 8 in. ; Pain 7/10; 09:30 Body Mass Index 20.53 (61.23 kg, 172.72 cm) iw 09:30 Pain Scale: Adult iw ED Course: 09:27 Patient arrived in ED. ts1 09:29 Oscar Medley PA is PHCP. jeffrey 09:30 Pascual Starr MD is Attending Physician. [facility] 09:31 Triage completed. iw 09:31 Arm band placed on. iw 09:36 Sveta Ramírez, RN is Primary Nurse. iw 09:36 Patient has correct armband on for positive identification. iw 09:36 No provider procedures requiring assistance completed. Patient did not have IV access iw during this emergency room visit. 09:40 Oliver Qiu DPM is Referral Physician. jeffrey Administered Medications: No medications were administered Medication: 09:36 VIS not applicable for this client. iw Outcome: 09:[address] . [facility] 09:53 Discharged to home ambulatory. iw 09:53 Condition: good 09:53 Discharge instructions given to patient, Instructed on discharge instructions, follow up and referral plans. medication usage, Demonstrated understanding of instructions, follow-up care, medications, Prescriptions given X 2. 09:53 Patient left the ED. iw Signatures: Oscar Medley PA PA jmm Williams, Irene, RN RN iw Erendira Gordon PAS PAS ts1
[2022-11-03 09:59] VITALS: BP 145/100; TEMP 98.5; O2SAT 97
== END 2022-11-03 09:53 | disposition home or self-care (01) ==
LOC: ER 09:24
DX: M79.672 Pain in left foot (principal); M79.671 Pain in right foot

== ENCOUNTER 2023-02-09 13:46 | Emergency (ER) | payer OTHER ==
--- OUTSIDE RECORDS SUMMARY | 2023-02-09 13:50 | XMS REPORT | Continuity of Care Document ---
:1945 Author Organization [facility] t Address [address] [place] [address] [place] [id number] Care Team Providers Name Role Phone [place] Primary Care Physician Unavailable MECHELLE DENG Attending Clinician Unavailable Mechelle Deng MD Attending Clinician BETO RUIZ Attending Clinician Unavailable ERIK FUNEZ Attending Clinician Unavailable ERIK FUNEZ Attending Clinician Unavailable Erik Funez MD Attending Clinician LYN CAMARILLO Attending Clinician Unavailable LYN CAMARILLO Attending Clinician Unavailable Nargis Reyes MD Attending Clinician [phone] NARGIS REYES Attending Clinician Unavailable Doctor Unassigned, [place] Attending Clinician Unavailable SAMAN LEMONS Attending Clinician Unavailable Saman Morrell Attending Clinician Payers Payer Name Policy Type Policy Number Effective Date Expiration Date S ource MEDICARE PART A [id number] 2011 \T\ B 00:00:00 [facility] [place] [id number] 1998 00:00:00 Problems Condition Condition Condition Status Onset Resolution Last Treating Co mments Source Name Details Category Date Date Treatment Clinician Date AK AK Disease Active Univers (actinic (actinic 7-19 ity of keratosis[place] [facility] Elevated Elevated Disease Active Unive rs PSA PSA 7-19 ity of 00:00: [place] [facility] Branch 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 01-01 ity of (BCC) (BCC) 00:00: Medical Branch Chronic Chronic Disease Active Univers post-traum post-traum 01-01 it y of atic atic 00:00: [place] stress stress 00 Medical disorder disorder Branch (PTSD) (PTSD) 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 01-01 it y of 00:00: Medical Branch Benign Benign Disease Active Univers essential essential 01-01 ity of hypertensi hypertensi 00:[place] [facility] Folic acid Folic acid Disease Active U nivers deficiency deficiency 01-01 it y of 00:: Medical Branch Gastroesop Gastroesop Disease Active U shaq hageal hageal 01-01 ity of reflux reflux 00:00: [place] disease disease 00 Medical Branch Hyperlipid Hyperlipid Disease Active U shaq emia emia 01-01 ity of 00:00: Medical Branch Hypothyroi Hypothyroi Disease Active U shaq dism, dism, 01-01 ity of unspecifie unspecifie 00:[place] [facility] [place] Inguinal Inguinal Disease Active Unive rs hernia hernia 01-01 ity of 00:00: Medical Branch Lower Lower Disease Active Univers urinary urinary 01-01 ity of tract tract 00:00: [place] symptoms symptoms 00 Medica l due to due to Branch 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 Mar 23, 2021 Entered By: LETY DUNLAP Comment: chronic groin painOct 2020 Entered By: LETY DUNLAP Comment: gabapenti n helpsOct 2020 Entered By: LETY DUNLAP Comment: He seeing civilian providers for this problem Prediabete Prediabete Disease Active U nivers s s 01-01 ity of 00:00: [place] 00 [facility] Allergies, Adverse Reactions, Alerts Allergy Allergy Status Severity Reaction(s) Onset Inactive Treating Comm ents Source Name Type Date Date Clinician NO KNOWN Drug Active Univers ALLERGIE Class ity of S [facility] Social History Social Habit Start Date Stop Date Quantity Comments Source History of tobacco Cigarette Smoker [facility] of [facility] Gender identity Universit y of [facility] Sexual orientation Univer sity of [facility] Alcohol intake 2023-02-06 2023-02-06 Ex-drinker University 00:00:00 00:00:00 (finding) [facility] Alcohol Comment 2023-01-01 2023-01-01 1990 Universit y of 00:00:00 00:00:00 [facility] Tobacco use and 2023-01-01 2023-01-01 Smokeless Universit y of exposure 00:00:00 00:00:00 tobacco non-user [facility] History of Social 2023-01-01 2023-01-01 Univers ity of function 00:00:00 00:00:00 [facility] Exposure to 2022-10-30 2022-11-09 Not sure [facility] SARS-CoV-2 (event) 00:00:00 07:50:00 [facility] Sex [birth year] Universit y of 00:00:00 00:00:00 [facility] Smoking Status Start Date Stop Date Source Ex-smoker 2023-01-01 00:00:00 2023-01-01 00:00:00 Universi ty of [facility] Medications Ordered Filled Start Stop Current Ordering Indication Dosage Frequency Signature Comments Components Source Medication Medication Date Date Medication? Clinician (SIG) Name Name levothyroxi Yes 25ug Take 1 Univ ers ne 25 mcg 7-27 tablet by ity o f tablet 14:40: mouth [place] 15 every Medical morning. Branch vitamin Yes 1000ug Take 1 Univer s B-12 1,000 7-27 tablet by ity of mcg tablet 14:40: mouth in [place] 15 the Medical morning. Branch omeprazole Yes 20mg Take 1 Unive rs 20 mg 7-27 capsule by ity of capsule 14:40: mouth in [place] 15 the Medical morning. Branch atorvastati 2023-0 Yes 40mg Take 0.5 Un damian n 80 mg 7-27 tablets by ity of tablet 14:40: mouth at [place] 15 bedtime. Medical Branch foLIC acid 2023-0 Yes 1mg Take 1 Unive rs 1 mg tablet 7-27 tablet by ity of 14:40: mouth in [place] 15 the Medical morning. Branch levothyroxi 2023-0 Yes 25ug Take 1 Univ ers ne 25 mcg 7-27 tablet by ity o f tablet 14:40: mouth [place] 15 every Medical morning. Branch vitamin 2023-0 Yes 1000ug Take 1 Univer s B-12 1,000 7-27 tablet by ity of mcg tablet 14:40: mouth in [place] 15 the Medical morning. Branch omeprazole 2023-0 Yes 20mg Take 1 Unive rs 20 mg 7-27 capsule by ity of capsule 14:40: mouth in [place] 15 the Medical morning. Branch atorvastati 2023-0 Yes 40mg Take 0.5 Un damian n 80 mg 7-27 tablets by ity of tablet 14:40: mouth at [place] 15 bedtime. Medical Branch foLIC acid 2023-0 Yes 1mg Take 1 Unive rs 1 mg tablet 7-27 tablet by ity of 14:40: mouth in [place] 15 the Medical morning. Branch levothyroxi 2023-0 Yes 25ug Take 1 Univ ers ne 25 mcg 7-27 tablet by ity o f tablet 14:40: mouth [place] 15 every Medical morning. Branch vitamin 2023-0 Yes 1000ug Take 1 Univer s B-12 1,000 7-27 tablet by ity of mcg tablet 14:40: mouth in [place] 15 the Medical morning. Branch omeprazole 2023-0 Yes 20mg Take 1 Unive rs 20 mg 7-27 capsule by ity of capsule 14:40: mouth in [place] 15 the Medical morning. Branch atorvastati 2023-0 Yes 40mg Take 0.5 Un damian n 80 mg 7-27 tablets by ity of tablet 14:40: mouth at [place] 15 bedtime. Medical Branch foLIC acid 2023-0 Yes 1mg Take 1 Unive rs 1 mg tablet 7-27 tablet by ity of 14:40: mouth in [place] 15 the Medical morning. Branch levothyroxi 2023-0 Yes 25ug Take 1 Univ ers ne 25 mcg 7-27 tablet by ity o f tablet 14:40: mouth [place] 15 every Medical morning. Branch vitamin 2023-0 Yes 1000ug Take 1 Univer s B-12 1,000 7-27 tablet by ity of mcg tablet 14:40: mouth in [place] 15 the Medical morning. Branch omeprazole 2023-0 Yes 20mg Take 1 Unive rs 20 mg 7-27 capsule by ity of capsule 14:40: mouth in [place] 15 the Medical morning. Branch atorvastati 2023-0 Yes 40mg Take 0.5 Un damian n 80 mg 7-27 tablets by ity of tablet 14:40: mouth at [place] 15 bedtime. Medical Branch foLIC acid 2023-0 Yes 1mg Take 1 Unive rs 1 mg tablet 7-27 tablet by ity of 14:40: mouth in [place] 15 the Medical morning. Branch levothyroxi 2023-0 Yes 25ug Take 1 Univ ers ne 25 mcg 7-27 tablet by ity o f tablet 14:40: mouth [place] 15 every Medical morning. Branch vitamin 2023-0 Yes 1000ug Take 1 Univer s B-12 1,000 7-27 tablet by ity of mcg tablet 14:40: mouth in [place] 15 the Medical morning. Branch omeprazole 2023-0 Yes 20mg Take 1 Unive rs 20 mg 7-27 capsule by ity of capsule 14:40: mouth in [place] 15 the Medical morning. Branch atorvastati 2023-0 Yes 40mg Take 0.5 Un damian n 80 mg 7-27 tablets by ity of tablet 14:40: mouth at [place] 15 bedtime. Medical Branch foLIC acid 2023-0 Yes 1mg Take 1 Unive rs 1 mg tablet 7-27 tablet by ity of 14:40: mouth in [place] 15 the Medical morning. Branch levothyroxi 2023-0 Yes 25ug Take 1 Univ ers ne 25 mcg 7-27 tablet by ity o f tablet 14:40: mouth [place] 15 every Medical morning. Branch vitamin 2023-0 Yes 1000ug Take 1 Univer s B-12 1,000 7-27 tablet by ity of mcg tablet 14:40: mouth in [place] 15 the Medical morning. Branch omeprazole 2023-0 Yes 20mg Take 1 Unive rs 20 mg 7-27 capsule by ity of capsule 14:40: mouth in [place] 15 the Medical morning. Branch atorvastati 2023-0 Yes 40mg Take 0.5 Un damian n 80 mg 7-27 tablets by ity of tablet 14:40: mouth at [place] 15 bedtime. Medical Branch foLIC acid 2023-0 Yes 1mg Take 1 Unive rs 1 mg tablet 7-27 tablet by ity of 14:40: mouth in [place] 15 the Medical morning. Branch levothyroxi 2023-0 Yes 25ug Take 1 Univ ers ne 25 mcg 7-27 tablet by ity o f tablet 14:40: mouth [place] 15 every Medical morning. Branch vitamin 2023-0 Yes 1000ug Take 1 Univer s B-12 1,000 7-27 tablet by ity of mcg tablet 14:40: mouth in [place] 15 the Medical morning. Branch omeprazole 2023-0 Yes 20mg Take 1 Unive rs 20 mg 7-27 capsule by ity of capsule 14:40: mouth in [place] 15 the Medical morning. Branch atorvastati 2023-0 Yes 40mg Take 0.5 Un damian n 80 mg 7-27 tablets by ity of tablet 14:40: mouth at [place] 15 bedtime. Medical Branch foLIC acid 2023-0 Yes 1mg Take 1 Unive rs 1 mg tablet 7-27 tablet by ity of 14:40: mouth in [place] 15 the Medical morning. Branch levothyroxi 3-0 Yes 25ug Take 1 Univ ers ne 25 mcg 7-27 tablet by ity o f tablet 14:40: mouth [place] 15 every Medical morning. Branch vitamin 2023-0 Yes 1000ug Take 1 Univer s B-12 1,000 7-27 tablet by ity of mcg tablet 14:40: mouth in [place] 15 the Medical morning. Branch omeprazole 2023-0 Yes 20mg Take 1 Unive rs 20 mg 7-27 capsule by ity of capsule 14:40: mouth in [place] 15 the Medical morning. Branch atorvastati 2023-0 Yes 40mg Take 0.5 Un damian n 80 mg 7-27 tablets by ity of tablet 14:40: mouth at [place] 15 bedtime. Medical Branch foLIC acid 2023-0 Yes 1mg Take 1 Unive rs 1 mg tablet 7-27 tablet by ity of 14:40: mouth in [place] 15 the Medical morning. Branch Menthol-Abdirahman 2023-0 Yes [id number] Apply to Univers e Vera 7-27 area(s) ity of Extract 16 00:00: every [place] % Gel 00 evening as Medical needed for Branch Other (foot pain/burni ng). gabapentin 2022-0 Yes [id number] 600mg Take 2 Univers 300 mg 7-27 capsules ity of capsule 00:00: by mouth [place] 00 in the Medical morning Branch and 2 capsules in the evening. Menthol-Abdirahman 2022-0 Yes [id number] Apply to Univers e Vera 7-27 area(s) ity of Extract 16 00:00: every [place] % Gel 00 evening as Medical needed for Branch Other (foot pain/burni ng). gabapentin 2022-0 Yes [id number] 600mg Take 2 Univers 300 mg 7-27 capsules ity of capsule 00:00: by mouth [place] 00 in the Medical morning Branch and 2 capsules in the evening. Menthol-Abdirahman 2022-0 Yes [id number] Apply to Univers e Vera 7-27 area(s) ity of Extract 16 00:00: every [place] % Gel 00 evening as Medical needed for Branch Other (foot pain/burni ng). gabapentin 2022-0 Yes [id number] 600mg Take 2 Univers 300 mg 7-27 capsules ity of capsule 00:00: by mouth [place] 00 in the Medical morning Branch and 2 capsules in the evening. Menthol-Abdirahman 2022-0 Yes [id number] Apply to Univers e Vera 7-27 area(s) ity of Extract 16 00:00: every [place] % Gel 00 evening as Medical needed for Branch Other (foot pain/burni ng). gabapentin 2022-0 Yes [id number] 600mg Take 2 Univers 300 mg 7-27 capsules ity of capsule 00:00: by mouth [place] 00 in the Medical morning Branch and 2 capsules in the evening. Menthol-Abdirahman 2022-0 Yes [id number] Apply to Univers e Vera 7-27 area(s) ity of Extract 16 00:00: every [place] % Gel 00 evening as Medical needed for Branch Other (foot pain/burni ng). gabapentin 2023-0 Yes [id number] 600mg Take 2 Univers 300 mg 7-27 capsules ity of capsule 00:00: by mouth [place] 00 in the Medical morning Branch and 2 capsules in the evening. Menthol-Abdirahman 2023-0 Yes [id number] Apply to Univers e Vera 7-27 area(s) ity of Extract 16 00:00: every [place] % Gel 00 evening as Medical needed for Branch Other (foot pain/burni ng). gabapentin 2022-0 Yes [id number] 600mg Take 2 Univers 300 mg 7-27 capsules ity of capsule 00:00: by mouth [place] 00 in the Medical morning Branch and 2 capsules in the evening. Menthol-Abdirahman 2023-0 Yes [id number] Apply to Univers e Vera 7-27 area(s) ity of Extract 16 00:00: every [place] % Gel 00 evening as Medical needed for Branch Other (foot pain/burni ng). gabapentin 2022-0 Yes [id number] 600mg Take 2 Univers 300 mg 7-27 capsules ity of capsule 00:00: by mouth [place] 00 in the Medical morning Branch and 2 capsules in the evening. Menthol-Abdirahman 202-0 Yes [id number] Apply to Univers e Vera 7-27 area(s) ity of Extract 16 00:00: every [place] % Gel 00 evening as Medical needed for Branch Other (foot pain/burni ng). gabapentin 2022-0 Yes [id number] 600mg Take 2 Univers 300 mg 7-27 capsules ity of capsule 00:00: by mouth [place] 00 in the Medical morning Branch and 2 capsules in the evening. Miconazole 2023-0 2023- No Apply to Un damian Nitrate 2 % -19 -19 area(s). ity of AerP 09:59: 00:00 [place] 23 :00 Medical Branch Miconazole 2023-0 2023- No Apply to Un damian Nitrate 2 % 7-19 -19 area(s). ity of AerP 09:59: 00:00 [place] 23 :00 Medical Branch foLIC acid 2022-0 Yes 1mg Take 1 Unive rs 1 mg tablet 7-19 tablet by ity of 09:58: mouth in [place] 45 the Medical morning. Branch foLIC acid 2022-0 Yes 1mg Take 1 Unive rs 1 mg tablet 7-19 tablet by ity of 09:58: mouth in [place] 45 the Medical morning. Branch foLIC acid 2022-0 Yes 1mg Take 1 Unive rs 1 mg tablet 7-19 tablet by ity of 09:58: mouth in [place] 45 the Medical morning. Branch atorvastati 3-0 Yes 40mg Take 0.5 Un damian n 80 mg 7-19 tablets by ity of tablet 09:58: mouth at [place] 21 bedtime. Medical Branch atorvastati 2022-0 Yes 40mg Take 0.5 Un damian n 80 mg 7-19 tablets by ity of tablet 09:58: mouth at [place] 21 bedtime. Medical Branch atorvastati 2022-0 Yes 40mg Take 0.5 Un damian n 80 mg 7-19 tablets by ity of tablet 09:58: mouth at [place] 21 bedtime. Medical Branch atorvastati 2022-0 3- No 40mg Take 1 Uni vers n (LIPITOR) 7-19 07-19 tablet by it y of 40 mg 09:57: 00:00 mouth at [place] tablet 34 :00 bedtime. Medical Branch atorvastati 2022-0 2022- No 40mg Take 1 Uni vers n (LIPITOR) 7-19 07-19 tablet by it y of 40 mg 09:57: 00:00 mouth at [place] tablet 34 :00 bedtime. Medical Branch omeprazole 3-0 Yes 20mg Take 1 Unive rs 20 mg 7-19 capsule by ity of capsule 09:57: mouth in [place] 22 the Medical morning. Branch omeprazole 3-0 Yes 20mg Take 1 Unive rs 20 mg 7-19 capsule by ity of capsule 09:57: mouth in [place] 22 the Medical morning. Branch omeprazole 3-0 Yes 20mg Take 1 Unive rs 20 mg 7-19 capsule by ity of capsule 09:57: mouth in [place] 22 the Medical morning. Branch OMEPRAZOLE 3-0 3- No Take by Uni vers ORAL 7-19 07-19 mouth. ity of 09:57: 00:00 [place] 13 :00 Medical Branch OMEPRAZOLE 3-0 3- No Take by Uni vers ORAL 7-19 07-19 mouth. ity of 09:57: 00:00 [place] 13 :00 Medical Branch vitamin 2023-0 Yes 1000ug Take 1 Univer s B-12 1,000 7-19 tablet by ity of mcg tablet 09:56: mouth in [place] 59 the Medical morning. Branch vitamin 2023-0 Yes 1000ug Take 1 Univer s B-12 1,000 7-19 tablet by ity of mcg tablet 09:56: mouth in [place] 59 the Medical morning. Branch vitamin 2022-0 Yes 1000ug Take 1 Univer s B-12 1,000 7-19 tablet by ity of mcg tablet 09:56: mouth in [place] 59 the Medical morning. Branch levothyroxi 2022-0 Yes 25ug Take 1 Univ ers ne 25 mcg 7-19 tablet by ity o f tablet 09:56: mouth [place] 06 every Medical morning. Branch levothyroxi 2022-0 Yes 25ug Take 1 Univ ers ne 25 mcg 7-19 tablet by ity o f tablet 09:56: mouth [place] 06 every Medical morning. Branch levothyroxi 2022-0 Yes 25ug Take 1 Univ ers ne 25 mcg 7-19 tablet by ity o f tablet 09:56: mouth [place] 06 every Medical morning. Branch desonide 0 Yes Apply to Unive rs (DESOWEN) 7-19 affected ity of 0.05 % 09:44: area(s). [place] cream 56 Medical Branch finasteride 0 Yes 5mg Take 1 Univ ers (PROSCAR) 5 7-19 tablet by ity of mg tablet 09:44: [place] 56 the Medical morning. Branch tamsulosin 0 Yes Take by Univ ers (FLOMAX) 7-19 mouth ity of 0.4 mg 24 09:44: daily. [place] hr capsule 56 Medical Branch desonide 0 Yes Apply to Unive rs (DESOWEN) 7-19 affected ity of 0.05 % 09:44: area(s). [place] cream 56 Medical Branch finasteride 2022-0 Yes 5mg Take 1 Univ ers (PROSCAR) 5 7-19 tablet by ity of mg tablet 09:44: [place] 56 the Medical morning. Branch tamsulosin 2022-0 Yes Take by Univ ers (FLOMAX) 7-19 mouth ity of 0.4 mg 24 09:44: daily. [place] hr capsule 56 Medical Branch desonide 2022-0 Yes Apply to Unive rs (DESOWEN) 7-19 affected ity of 0.05 % 09:44: area(s). [place] cream 56 Medical Branch finasteride 2023-0 Yes 5mg Take 1 Univ ers (PROSCAR) 5 7-19 tablet by ity of mg tablet 09:44: mouth [place] 56 the Medical morning. Branch tamsulosin 2022-0 Yes Take by Univ ers (FLOMAX) 7-19 mouth ity of 0.4 mg 24 09:44: daily. [place] hr capsule 56 Medical Branch desonide 2022-0 Yes Apply to Unive rs (DESOWEN) 7-19 affected ity of 0.05 % 09:44: area(s). [place] cream 56 Medical Branch finasteride 3-0 Yes 5mg Take 1 Univ ers (PROSCAR) 5 7-19 tablet by ity of mg tablet 09:44: mouth [place] 56 the Medical morning. Branch tamsulosin 2022-0 Yes Take by Univ ers (FLOMAX) 7-19 mouth ity of 0.4 mg 24 09:44: daily. [place] hr capsule 56 Medical Branch desonide 2022-0 Yes [facility] 7-19 affected ity of 0.05 % 09:44: area(s). [place] cream 56 Medical Branch finasteride 2022-0 Yes 5mg Take 1 Univ ers (PROSCAR) 5 7- tablet by ity of mg tablet 09:44: mouth [place] 56 the Medical morning. Branch tamsulosin 2022-0 Yes Take by Univ ers (FLOMAX) 7-19 mouth ity of 0.4 mg 24 09:44: daily. [place] hr capsule 56 Medical Branch desonide 2022-0 Yes Apply to Unive rs (DESOWEN) 7-19 affected ity of 0.05 % 09:44: area(s). [place] cream 56 Medical Branch finasteride 3-0 Yes 5mg Take 1 Univ ers (PROSCAR) 5 7-19 tablet by ity of mg tablet 09:44: mouth [place] 56 the Medical morning. Branch tamsulosin 3-0 Yes Take by Univ ers (FLOMAX) 7-19 mouth ity of 0.4 mg 24 09:44: daily. [place] hr capsule 56 Medical Branch desonide 2022-0 Yes Apply to Unive rs (DESOWEN) 7-19 affected ity of 0.05 % 09:44: area(s). [place] cream 56 Medical Branch finasteride 2022-0 Yes 5mg Take 1 Univ ers (PROSCAR) 5 7-19 tablet by ity of mg tablet 09:44: mouth [place] 56 the Medical morning. Branch tamsulosin 0 Yes Take by Univ ers (FLOMAX) 7-19 mouth ity of 0.4 mg 24 09:44: daily. [place] hr capsule 56 Medical Branch desonide 0 Yes Apply to Unive rs (DESOWEN) 7-19 affected ity of 0.05 % 09:44: area(s). [place] cream 56 Medical Branch finasteride 2022-0 Yes 5mg Take 1 Univ ers (PROSCAR) 5 7- tablet by ity of mg tablet 09:44: mouth [place] 56 the Medical morning. Branch tamsulosin 2022-0 Yes Take by Univ ers (FLOMAX) 7-19 mouth ity of 0.4 mg 24 09:44: daily. [place] hr capsule 56 Medical Branch desonide 0 Yes Apply to Unive rs (DESOWEN) 7- affected ity of 0.05 % 09:44: area(s). [place] cream 56 Medical Branch finasteride 2022-0 Yes 5mg Take 1 Univ ers (PROSCAR) 5 7- tablet by ity of mg tablet 09:44: mouth [place] 56 the Medical morning. Branch tamsulosin 2022-0 Yes Take by Univ ers (FLOMAX) 7-19 mouth ity of 0.4 mg 24 09:44: daily. [place] hr capsule 56 Medical Branch desonide 0 Yes Apply to Unive rs (DESOWEN) 7-19 affected ity of 0.05 % 09:44: area(s). [place] cream 56 Medical Branch finasteride 2022-0 Yes 5mg Take 1 Univ ers (PROSCAR) 5 7-19 tablet by ity of mg tablet 09:44: mouth [place] 56 the Medical morning. Branch tamsulosin 2022-0 Yes Take by Univ ers (FLOMAX) 7-19 mouth ity of 0.4 mg 24 09:44: daily. [place] hr capsule 56 Medical Branch desonide 2022-0 Yes Apply to Unive rs (DESOWEN) 7-19 affected ity of 0.05 % 09:44: area(s). [place] cream 56 Medical Branch finasteride 0 Yes 5mg Take 1 [facility] ers (PROSCAR) 5 01-01 tablet by ity of mg tablet 09:44: mouth in [facility] s 56 the Medical morning. Branch tamsulosin Yes Take by [facility] ers (FLOMAX) 01-01 mouth ity of 0.4 mg 24 09:44: daily. [place] hr capsule 56 Medical Branch Menthol-Abdirahman 0 Yes [id number] Apply to [facility] e Vera 01-01 area(s) ity of Extract 16 00:00: every [place] % Gel 00 evening as Medical needed for Branch Other (foot pain/burni ng). Menthol-Abdirahman 0 Yes [id number] Apply to [facility] e Vera 01-01 area(s) ity of Extract 16 00:00: every [place] % Gel 00 evening as Medical needed for Branch Other (foot pain/burni ng). Menthol-Abdirahman Yes [id number] Apply to Univers e Vera 01-01 area(s) ity of Extract 16 00:00: every [place] % Gel 00 evening as Medical needed for Branch Other (foot pain/burni ng). Menthol-Abdirahman 0 202- No [id number] Apply to Univers e Vera 01-01 area(s) ity of Extract 16 00:00: 00:00 every [place] % Gel 00 :00 evening as Medical needed for Branch Other (foot pain/burni ng). Menthol-Abdirahman 0 202- No [id number] Apply to Univers e Vera 01-01 area(s) ity of Extract 16 00:00: 00:00 every [place] % Gel 00 :00 evening as Medical needed for Branch Other (foot pain/burni ng). acetaminoph 0 2022- No 1000mg 1,000 mg, Univers en 10-24 Oral, ity of (TYLENOL) 21:45: 21:09 ONCE, 1 [place] tablet 00 :00 dose, On Medical 1,000 mg [place] Branch 10/24/22 at 1645, Routine Diclofenac 2022-0 Yes [id number] Apply to [facility] Sodium 10-24 [id number] area(s) 2 ity of (VOLTAREN) 00:00: (two) [place] 1 % gel 00 times Medical daily. Branch Diclofenac 2023-0 Yes [id number] Apply to Univers Sodium 5-11 [id number] area(s) 2 ity of (VOLTAREN) 00:00: (two) [place] 1 % gel 00 times Medical daily. Branch Diclofenac 2023-0 Yes [id number] Apply to Univers Sodium 5-11 [id number] area(s) 2 ity of (VOLTAREN) 00:00: (two) [place] 1 % gel 00 times Medical daily. Branch Diclofenac 2023-0 Yes [id number] Apply to Univers Sodium 5-11 [id number] area(s) 2 ity of (VOLTAREN) 00:00: (two) [place] 1 % gel 00 times Medical daily. Branch Diclofenac 2023-0 Yes [id number] Apply to Univers Sodium 5-11 [id number] area(s) 2 ity of (VOLTAREN) 00:00: (two) [place] 1 % gel 00 times Medical daily. Branch Diclofenac 2023-0 Yes [id number] Apply to Univers Sodium 5-11 [id number] area(s) 2 ity of (VOLTAREN) 00:00: (two) [place] 1 % gel 00 times Medical daily. Branch Diclofenac 2023-0 Yes [id number] Apply to Univers Sodium 5-11 [id number] area(s) 2 ity of (VOLTAREN) 00:00: (two) [place] 1 % gel 00 times Medical daily. Branch Diclofenac 2023-0 Yes [id number] Apply to Univers Sodium 5-11 [id number] area(s) 2 ity of (VOLTAREN) 00:00: (two) [place] 1 % gel 00 times Medical daily. Branch Diclofenac 2023-0 Yes [id number] Apply to Univers Sodium 5-11 [id number] area(s) 2 ity of (VOLTAREN) 00:00: (two) [place] 1 % gel 00 times Medical daily. Branch Diclofenac 2023-0 Yes [id number] Apply to Univers Sodium 5-11 [id number] area(s) 2 ity of (VOLTAREN) 00:00: (two) [place] 1 % gel 00 times Medical daily. Branch Diclofenac 2023-0 Yes [id number] Apply to Univers Sodium 5-11 [id number] area(s) 2 ity of (VOLTAREN) 00:00: (two) [place] 1 % gel 00 times Medical daily. Branch Diclofenac Yes [id number] Apply to Univers Sodium 5-11 [id number] area(s) 2 ity of (VOLTAREN) 00:00: (two) [place] 1 % gel 00 times Medical daily. Branch Diclofenac Yes [id number] Apply to Univers Sodium 5-11 [id number] area(s) 2 ity of (VOLTAREN) 00:00: (two) [place] 1 % gel 00 times Medical daily. Branch Diclofenac Yes [id number] Apply to Univers Sodium 5-11 [id number] area(s) 2 ity of (VOLTAREN) 00:00: (two) [place] 1 % gel 00 times Medical daily. Branch proMETHazin 2018-06 Yes [id number] 25mg Take 1 Univers e 25 mg 2-06 tablet by ity of tablet 00:00: mouth [place] 00 every 6 Medical (six) Branch hours as needed for Nausea and Vomiting (N/V). traMADol 50 2018-06 Yes [id number] 50mg Take 1 Univers mg tablet 2-06 tablet by ity o f 00:00: mouth [place] 00 every 6 Medical (six) Branch hours as needed (pain). proMETHazin 2018-06 Yes [id number] 25mg Take 1 [facility] e 25 mg 2-06 tablet by ity of tablet 00:00: mouth [place] 00 every 6 Medical (six) Branch hours as needed for Nausea and Vomiting (N/V). traMADol 50 2018-06 Yes [id number] 50mg Take 1 [facility] mg tablet 2-06 tablet by ity o f 00:00: mouth [place] 00 every 6 Medical (six) Branch hours as needed (pain). proMETHazin 2018-06 Yes [id number] 25mg Take 1 [facility] e 25 mg 2-06 tablet by ity of tablet 00:00: mouth [place] 00 every 6 Medical (six) Branch hours as needed for Nausea and Vomiting (N/V). traMADol 50 2018-06 Yes [id number] 50mg Take 1 [facility] mg tablet 2-06 tablet by ity o f 00:00: mouth [place] 00 every 6 Medical (six) Branch hours as needed (pain). traMADol 50 2018-06- No [id number] 50mg Take 1 [facility] mg tablet 2-06 07-19 tablet by ity of 00:00: 00:00 mouth [place] 00 :00 every 6 Medical (six) Branch hours as needed (pain). proMETHazin 2018-06- No [id number] 25mg Take 1 Univers e 25 mg 07-22- tablet by ity of tablet 00:00: 00:00 mouth [place] 00 :00 every 6 Medical (six) Branch hours as needed for Nausea and Vomiting (N/V). traMADol 50 2018-06- No [id number] 50mg Take 1 [facility] mg tablet 07-22 tablet by ity of 00:00: 00:00 mouth [place] 00 :00 every 6 Medical (six) Branch hours as needed (pain). proMETHazin 2018-06- No [id number] 25mg Take 1 Univers e 25 mg 07-22 tablet by ity of tablet 00:00: 00:00 mouth [place] 00 :00 every 6 Medical (six) Branch hours as needed for Nausea and Vomiting (N/V). Miconazole Yes Apply to Uni vers Nitrate 2 % 2-06 area(s). ity of AerP 15:41: [address] Miconazole Yes Apply to Uni vers Nitrate 2 % 2-06 area(s). ity of AerP 15:41: [address] Miconazole 2016- Yes Apply to Uni vers Nitrate 2 % 2-06 area(s). ity of AerP 15:41: [address] finasteride Yes 5mg Take 5 mg U nivers (PROSCAR) 5 2-06 by mouth ity of mg tablet 14:38: daily. [address] atorvastati Yes 40mg Take 40 mg Univers n (LIPITOR) 2-06 by mouth ity of 40 mg 14:38: at [facility] 53 bedtime. Medical Branch tamsulosin 0 Yes Take by [facility] ers (FLOMAX) 2-06 mouth ity of 0.4 mg 24 14:38: daily. [place] [address] Medical Branch OMEPRAZOLE 2016-0 Yes Take by [facility] ers ORAL 2-06 mouth. ity of 14:38: [address] finasteride Yes 5mg Take 5 mg U nivers (PROSCAR) 5 2-06 by mouth ity of mg tablet 14:38: daily. [place] 53 Medical Branch atorvastati Yes 40mg Take 40 mg Univers n (LIPITOR) 2-06 by mouth ity of 40 mg 14:38: at [place] tablet 53 bedtime. Medical Branch tamsulosin Yes Take by [facility] ers (FLOMAX) 2-06 mouth ity of 0.4 mg 24 14:38: daily. [place] hr capsule 53 Medical Branch OMEPRAZOLE Yes Take by Univ ers ORAL 2-06 mouth. ity of 14:38: [place] [address] Medical Branch finasteride Yes 5mg Take 5 mg U nivers (PROSCAR) 5 2-06 by mouth ity of mg tablet 14:38: daily. [place] [address] Medical Branch atorvastati Yes 40mg Take 40 mg Univers n (LIPITOR) 2-06 by mouth ity of 40 mg 14:38: at [place] tablet 53 bedtime. Medical Branch tamsulosin Yes Take by [facility] ers (FLOMAX) 2-06 mouth ity of 0.4 mg 24 14:38: daily. [place] hr capsule Medical Branch OMEPRAZOLE Yes Take by [facility] ers ORAL 2-06 mouth. ity of 14:38: [address] desonide Yes Apply to [facility] rs (DESOWEN) 9 affected ity of 0.05 % 14:47: area(s). [place] [address] Medical [place] desonide Yes Apply to [facility] rs (DESOWEN) 03-12 affected ity of 0.05 % 14:47: area(s). [address] desonide Yes Apply to [facility] rs (DESOWEN) 03-12 affected ity of 0.05 % 14:47: area(s). [place] [address] Medical Branch methylPREDN 2015-0 Yes 84mg Take 21 Uni vers ISolone 9-27 tablets by ity of (MEDROL, 00:00: mouth [place] JOSE ALBERTO,) 4 mg 00 SEE-INSTRU Med ical tablets CTIONS. Branch follow package directions methylPREDN 2016-0 Yes 84mg Take 21 Uni vers ISolone 9-27 tablets by ity of (MEDROL, 00:00: mouth [place] JOSE ALBERTO,) 4 mg 00 SEE-INSTRU Med ical tablets CTIONS. Branch follow package directions methylPREDN 2016-0 Yes 84mg Take 21 Uni vers ISolone 9-27 tablets by ity of (MEDROL, 00:00: mouth [place] JOSE ALBERTO,) 4 mg 00 SEE-INSTRU Med ical tablets CTIONS. Branch follow package directions methylPREDN 2022- No 84mg Take 21 Un damian ISolone 9-27 07-19 tablets by ity o f (MEDROL, 00:00: 00:00 mouth [place] JOSE ALBERTO,) 4 mg 00 :00 SEE-INSTRU Med ical tablets CTIONS. Branch follow package directions methylPREDN 2022- No 84mg Take 21 Un damian ISolone 9-27 -19 tablets by ity o f (MEDROL, 00:00: 00:00 mouth [place] JOSE ALBERTO,) 4 mg 00 :00 SEE-INSTRU Med ical tablets CTIONS. Branch follow package directions KCL Yes 20meq Take 1 Univers (KLOR-CON 7-10 tablet by ity o f M20) 20 mEq 00:00: mouth 2 [place] tablet 00 (two) Medical times Branch daily. KCL Yes 20meq Take 1 Univers (KLOR-CON 7-10 tablet by ity o f M20) 20 mEq 00:00: mouth 2 [place] tablet 00 (two) Medical times Branch daily. KCL Yes 20meq Take 1 Univers (KLOR-CON 7-10 tablet by ity o f M20) 20 mEq 00:00: mouth 2 [place] tablet 00 (two) Medical times Branch daily. KCL 2022- No 20meq Take 1 Univers (KLOR-CON 7-10 -19 tablet by ity of 0) 20 mEq 00:00: 00:00 mouth 2 [place] tablet 00 :00 (two) Medical times Branch daily. KCL 2022- No 20meq Take 1 [facility] (KLOR-CON 7-10 07-19 tablet by ity of M20) 20 mEq 00:00: 00:00 mouth 2 [place] tablet 00 :00 (two) Medical times Branch daily. gabapentin Yes [id number] 300mg Take 1 Univers (NEURONTIN) 5-11 capsule by it y of 300 mg 00:00: mouth 3 [place] capsule 00 (three) Medical times Branch daily. gabapentin Yes [id number] 300mg Take 1 Univers (NEURONTIN) 5-11 capsule by it y of 300 mg 00:00: mouth 3 [place] capsule 00 (three) Medical times Branch daily. gabapentin Yes [id number] 300mg Take 1 Univers (NEURONTIN) 5-11 capsule by it y of 300 mg 00:00: mouth 3 [place] capsule 00 (three) Medical times Branch daily. gabapentin Yes [id number] 300mg Take 1 Univers (NEURONTIN) 5-11 capsule by it y of 300 mg 00:00: mouth 3 [place] capsule 00 (three) Medical times Branch daily. gabapentin Yes [id number] 300mg Take 1 Univers (NEURONTIN) 5-11 capsule by it y of 300 mg 00:00: mouth 3 [place] capsule 00 (three) Medical times Branch daily. gabapentin Yes [id number] 300mg Take 1 Univers (NEURONTIN) 5-11 capsule by it y of 300 mg 00:00: mouth 3 [place] capsule 00 (three) Medical times Branch daily. gabapentin 2022- No [id number] 300mg Take 1 Univers (NEURONTIN) 5-11 07-27 capsule by i ty of 300 mg 00:00: 00:00 mouth 3 [place] capsule 00 :00 (three) Medical times Branch daily. gabapentin 2022- No [id number] 300mg Take 1 Univers (NEURONTIN) 5-11 07-27 capsule by i ty of 300 mg 00:00: 00:00 mouth 3 [place] capsule 00 :00 (three) Medical times Branch daily. ibuprofen Yes 400mg Take 1 Tab U nivers (MOTRIN) 8-28 by mouth ity of 400 mg 00:00: every 6 [place] tablet 00 (six) Medical hours as Branch needed for Pain (scale 4-6). nystatin Yes [id number] Apply to U nivers (MYCOSTATIN 8-28 area(s) 2 ity of ) 100,000 00:00: (two) [place] unit/gram 00 times Medical cream daily. Branch ibuprofen 0 Yes 400mg Take 1 Tab U nivers (MOTRIN) 8-28 by mouth ity of 400 mg 00:00: every 6 [place] tablet 00 (six) Medical hours as Branch needed for Pain (scale 4-6). nystatin 2014-0 Yes [id number] Apply to U nivers (MYCOSTATIN 8-28 area(s) 2 ity of ) 100,000 00:00: (two) [place] unit/gram 00 times Medical cream daily. Branch ibuprofen Yes 400mg Take 1 Tab U nivers (MOTRIN) 8 by mouth ity of 400 mg 00:00: every 6 [place] tablet 00 (six) Medical hours as Branch needed for Pain (scale 4-6). nystatin Yes [id number] Apply to U nivers (MYCOSTATIN 8 area(s) 2 ity of ) 100,000 00:00: (two) [place] unit/gram 00 times Medical cream daily. Branch ibuprofen 2022- No 400mg Take 1 Tab Univers (MOTRIN) 801-01 by mouth ity of 400 mg 00:00: 00:00 every 6 [place] tablet 00 :00 (six) Medical hours as Branch needed for Pain (scale 4-6). nystatin 2022- No [id number] Apply to Univers (MYCOSTATIN 02-10 area(s) 2 it y of ) 100,000 00:00: 00:00 (two) [place] unit/gram 00 :00 times Medical cream daily. Branch ibuprofen No 400mg Take 1 Tab Univers (MOTRIN) 02-10 by mouth ity of 400 mg 00:00: 00:00 every 6 [place] tablet 00 :00 (six) Medical hours as Branch needed for Pain (scale 4-6). nystatin 2022- No [id number] Apply to Univers (MYCOSTATIN 02-10 area(s) 2 it y of ) 100,000 00:00: 00:00 (two) [place] unit/gram 00 :00 times Medical cream daily. Branch Immunizations Ordered Filled Immunization Date Status Comments [facility] e Immunization Name Name Influenza High Dose 2022-03-19 Completed Unive rsity of 00:00:00 [facility] Influenza High Dose 2022-03-19 Completed Unive rsity of 00:00:00 [facility] Influenza High Dose 2022-03-19 Completed Unive rsity of 00:00:00 [facility] Influenza High Dose 2022-03-19 Completed Unive rsity of 00:00:00 [facility] Influenza High Dose 2022-03-19 Completed Unive rsity of 00:00:00 [place] [facility] Influenza High Dose 2022-03-19 Completed Unive rsity of 00:00:00 [facility] Branch Influenza High Dose 2022-03-19 Completed Unive rsity of 00:00:00 [place] [facility] Influenza High Dose 2022-03-19 Completed Unive rsity of 00:00:00 [place] [facility] Influenza High Dose 2022-03-19 Completed Unive rsity of 00:00:00 [facility] Branch Influenza High Dose 2022-03-19 Completed Unive rsity of 00:00:00 [facility] Branch Influenza High Dose 2022-03-19 Completed Unive rsity of 00:00:00 [facility] Influenza High Dose 2022-03-19 Completed Unive rsity of 00:00:00 [facility] SARS-COV-2 COVID-19 2021-06-25 Completed Unive rsity of PFIZER VACCINE 00:00:00 [facility] Branch SARS-COV-2 COVID-19 2021-06-25 Completed Unive rsity of PFIZER VACCINE 00:00:00 [facility] SARS-COV-2 COVID-19 2021-06-25 Completed Unive rsity of PFIZER VACCINE 00:00:00 [facility] SARS-COV-2 COVID-19 2021-06-25 Completed Unive rsity of PFIZER VACCINE 00:00:00 [facility] SARS-COV-2 COVID-19 2021-06-25 Completed Unive rsity of PFIZER VACCINE 00:00:00 [facility] SARS-COV-2 COVID-19 2021-06-25 Completed Unive rsity of PFIZER VACCINE 00:00:00 [facility] SARS-COV-2 COVID-19 2021-06-25 Completed Unive rsity of PFIZER VACCINE 00:00:00 [facility] SARS-COV-2 COVID-19 2021-06-25 Completed Unive rsity of PFIZER VACCINE 00:00:00 [facility] SARS-COV-2 COVID-19 2021-06-25 Completed Unive rsity of PFIZER VACCINE 00:00:00 [facility] SARS-COV-2 COVID-19 2021-06-25 Completed Unive rsity of PFIZER VACCINE 00:00:00 [facility] SARS-COV-2 COVID-19 2021-06-25 Completed Unive rsity of PFIZER VACCINE 00:00:00 [facility] SARS-COV-2 COVID-19 2021-06-25 Completed Unive rsity of PFIZER VACCINE 00:00:00 [facility] Influenza Virus 2021-03-21 Completed Universit y of Vaccine 00:00:00 [facility] Influenza Virus 2021-03-21 Completed Universit y of Vaccine 00:00:00 [facility] Influenza Virus 2021-03-21 Completed Universit y of Vaccine 00:00:00 [facility] Influenza Virus 2021-03-21 Completed Universit y of Vaccine 00:00:00 [facility] Influenza Virus 2021-03-21 Completed Universit y of Vaccine 00:00:00 [facility] Influenza Virus 2021-03-21 Completed Universit y of Vaccine 00:00:00 [facility] Influenza Virus 2021-03-21 Completed Universit y of Vaccine 00:00:00 [facility] Influenza Virus 2021-03-21 Completed Universit y of Vaccine 00:00:00 [facility] Influenza Virus 2021-03-21 Completed Universit y of Vaccine 00:00:00 [facility] Influenza Virus 2021-03-21 Completed Universit y of Vaccine 00:00:00 [facility] Influenza Virus 2021-03-21 Completed Universit y of Vaccine 00:00:00 [facility] Influenza Virus 2021-03-21 Completed Universit y of Vaccine 00:00:00 [facility] SARS-COV-2 COVID-19 2020-08-16 Completed Unive rsity of PFIZER VACCINE 00:00:00 [facility] SARS-COV-2 COVID-19 2020-08-16 Completed Unive rsity of PFIZER VACCINE 00:00:00 [facility] SARS-COV-2 COVID-19 2020-08-16 Completed Unive rsity of PFIZER VACCINE 00:00:00 [facility] SARS-COV-2 COVID-19 2020-08-16 Completed Unive rsity of PFIZER VACCINE 00:00:00 [facility] SARS-COV-2 COVID-19 2020-08-16 Completed Unive rsity of PFIZER VACCINE 00:00:00 [facility] SARS-COV-2 COVID-19 2020-08-16 Completed Unive rsity of PFIZER VACCINE 00:00:00 [place] [facility] SARS-COV-2 COVID-19 2020-08-16 Completed Unive rsity of PFIZER VACCINE 00:00:00 [facility] SARS-COV-2 COVID-19 2020-08-16 Completed Unive rsity of PFIZER VACCINE 00:00:00 [facility] SARS-COV-2 COVID-19 2020-08-16 Completed Unive rsity of PFIZER VACCINE 00:00:00 [facility] SARS-COV-2 COVID-19 2020-08-16 Completed Unive rsity of PFIZER VACCINE 00:00:00 [facility] SARS-COV-2 COVID-19 2020-08-16 Completed Unive rsity of PFIZER VACCINE 00:00:00 [facility] SARS-COV-2 COVID-19 2020-08-16 Completed Unive rsity of PFIZER VACCINE 00:00:00 [facility] SARS-COV-2 COVID-19 2020-07-26 Completed Unive rsity of PFIZER VACCINE 00:00:00 [facility] SARS-COV-2 COVID-19 2020-07-26 Completed Unive rsity of PFIZER VACCINE 00:00:00 [facility] SARS-COV-2 COVID-19 2020-07-26 Completed Unive rsity of PFIZER VACCINE 00:00:00 [facility] SARS-COV-2 COVID-19 2020-07-26 Completed Unive rsity of PFIZER VACCINE 00:00:00 [facility] SARS-COV-2 COVID-19 2020-07-26 Completed Unive rsity of PFIZER VACCINE 00:00:00 [facility] SARS-COV-2 COVID-19 2020-07-26 Completed Unive rsity of PFIZER VACCINE 00:00:00 [facility] SARS-COV-2 COVID-19 2020-07-26 Completed Unive rsity of PFIZER VACCINE 00:00:00 [facility] SARS-COV-2 COVID-19 2020-07-26 Completed Unive rsity of PFIZER VACCINE 00:00:00 [facility] SARS-COV-2 COVID-19 2020-07-26 Completed Unive rsity of PFIZER VACCINE 00:00:00 [facility] SARS-COV-2 COVID-19 2020-07-26 Completed Unive rsity of PFIZER VACCINE 00:00:00 [facility] SARS-COV-2 COVID-19 2020-07-26 Completed Unive rsity of PFIZER VACCINE 00:00:00 [facility] SARS-COV-2 COVID-19 2020-07-26 Completed Unive rsity of PFIZER VACCINE 00:00:00 [facility] Influenza Virus 2020-03-16 Completed Universit y of Vaccine 00:00:00 [facility] Influenza Virus 2020-03-16 Completed Universit y of Vaccine 00:00:00 [facility] Influenza Virus 2020-03-16 Completed Universit y of Vaccine 00:00:00 [facility] Influenza Virus 2020-03-16 Completed Universit y of Vaccine 00:00:00 [facility] Influenza Virus 2020-03-16 Completed Universit y of Vaccine 00:00:00 [facility] Influenza Virus 2020-03-16 Completed Universit y of Vaccine 00:00:00 [facility] Influenza Virus 2020-03-16 Completed Universit y of Vaccine 00:00:00 [facility] Influenza Virus 2020-03-16 Completed Universit y of Vaccine 00:00:00 [facility] Influenza Virus 2020-03-16 Completed Universit y of Vaccine 00:00:00 [facility] Influenza Virus 2020-03-16 Completed Universit y of Vaccine 00:00:00 [facility] Influenza Virus 2020-03-16 Completed Universit y of Vaccine 00:00:00 [facility] Influenza Virus 2020-03-16 Completed Universit y of Vaccine 00:00:00 [facility] Influenza, 2019-03-18 Completed University of Trivalent, 00:00:00 [facility] Adjuvanted [place] Influenza, 2019-03-18 Completed University of Trivalent, 00:00:00 [facility] Adjuvanted [place] Influenza, 2019-03-18 Completed University of Trivalent, 00:00:00 [facility] Adjuvanted [place] Influenza, 2019-03-18 Completed University of Trivalent, 00:00:00 [facility] Adjuvanted [place] Influenza, 2019-03-18 Completed University of Trivalent, 00:00:00 [facility] Adjuvanted [place] Influenza, 2019-03-18 Completed University of Trivalent, 00:00:00 [facility] Adjuvanted [place] Influenza, 2019-03-18 Completed University of Trivalent, 00:00:00 [facility] Adjuvanted [place] Influenza, 2019-03-18 Completed University of Trivalent, 00:00:00 [place] [facility] Adjuvant[facility] Influenza, 2019-03-18 Completed University of Trivalent, 00:00:00 [place] [facility] Adjuvant[facility] Influenza, 2019-03-18 Completed University of Trivalent, 00:00:00 [place] [facility] Adjuvant[facility] Influenza, 2019-03-18 Completed University of Trivalent, 00:00:00 [place] [facility] Adjuvant[facility] Influenza, 2019-03-18 Completed University of Trivalent, 00:00:00 [place] [facility] Adjuvant[facility] Influenza, 2018-03-19 Completed University of Trivalent, 00:00:00 [place] [facility] Adjuvant[facility] Influenza, 2018-03-19 Completed University of Trivalent, 00:00:00 [place] [facility] Adjuvanted [facility] Influenza, 2018-03-19 Completed University of Trivalent, 00:00:00 [place] [facility] Adjuvanted [facility] Influenza, 2018-03-19 Completed University of Trivalent, 00:00:00 [place] [facility] Adjuvanted [facility] Influenza, 2018-03-19 Completed University of Trivalent, 00:00:00 [place] [facility] Adjuvanted [facility] Influenza, 2018-03-19 Completed University of Trivalent, 00:00:00 [place] [facility] Adjuvant[facility] Influenza, 2018-03-19 Completed University of Trivalent, 00:00:00 [place] [facility] Adjuvant[facility] Influenza, 2018-03-19 Completed University of Trivalent, 00:00:00 [place] [facility] Adjuvant[facility] Influenza, 2018-03-19 Completed University of Trivalent, 00:00:00 [place] [facility] Adjuvanted [facility] Influenza, 2018-03-19 Completed University of Trivalent, 00:00:00 [place] [facility] Adjuvant[facility] Influenza, 2018-03-19 Completed University of Trivalent, 00:00:00 [place] [facility] Adjuvant[facility] Influenza, 2018-03-19 Completed University of Trivalent, 00:00:00 [place] [facility] Adjuvant[facility] Influenza High Dose 2017-03-20 Completed Unive rsity of 00:00:00 [facility] Influenza High Dose 2017-03-20 Completed Unive rsity of 00:00:00 [place] [facility] Influenza High Dose 2017-03-20 Completed Unive rsity of 00:00:00 [place] [facility] Influenza High Dose 2017-03-20 Completed Unive rsity of 00:00:00 [place] [facility] Influenza High Dose 2017-03-20 Completed Unive rsity of 00:00:00 [facility] Influenza High Dose 2017-03-20 Completed Unive rsity of 00:00:00 [facility] Influenza High Dose 2017-03-20 Completed Unive rsity of 00:00:00 [facility] Influenza High Dose 2017-03-20 Completed Unive rsity of 00:00:00 [facility] Influenza High Dose 2017-03-20 Completed Unive rsity of 00:00:00 [facility] Influenza High Dose 2017-03-20 Completed Unive rsity of 00:00:00 [facility] Influenza High Dose 2017-03-20 Completed Unive rsity of 00:00:00 [facility] Influenza High Dose 2017-03-20 Completed Unive rsity of 00:00:00 [facility] Influenza Virus 2016-03-20 Completed Universit y of Vaccine 00:00:00 [facility] Influenza Virus 2016-03-20 Completed Universit y of Vaccine 00:00:00 [facility] Influenza Virus 2016-03-20 Completed Universit y of Vaccine 00:00:00 [facility] Influenza Virus 2016-03-20 Completed Universit y of Vaccine 00:00:00 [facility] Influenza Virus 2016-03-20 Completed Universit y of Vaccine 00:00:00 [facility] Influenza Virus 2016-03-20 Completed Universit y of Vaccine 00:00:00 [facility] Influenza Virus 2016-03-20 Completed Universit y of Vaccine 00:00:00 [facility] Influenza Virus 2016-03-20 Completed Universit y of Vaccine 00:00:00 [facility] Influenza Virus 2016-03-20 Completed Universit y of Vaccine 00:00:00 [facility] Influenza Virus 2016-03-20 Completed Universit y of Vaccine 00:00:00 [facility] Influenza Virus 2016-03-20 Completed Universit y of Vaccine 00:00:00 [facility] Influenza Virus 2016-03-20 Completed Universit y of Vaccine 00:00:00 [facility] Influenza Virus 2016-03-20 Completed Universit y of Vaccine 00:00:00 [facility] Influenza Virus 2016-03-20 Completed Universit y of Vaccine 00:00:00 [facility] Influenza High Dose 2015-04-04 Completed Unive rsity of 00:00:00 [facility] Influenza High Dose 2015-04-04 Completed Unive rsity of 00:00:00 [facility] Influenza High Dose 2015-04-04 Completed Unive rsity of 00:00:00 [facility] Influenza High Dose 2015-04-04 Completed Unive rsity of 00:00:00 [facility] Branch Influenza High Dose 2015-04-04 Completed Unive rsity of 00:00:00 [facility] Influenza High Dose 2015-04-04 Completed Unive rsity of 00:00:00 [facility] Branch Influenza High Dose 2015-04-04 Completed Unive rsity of 00:00:00 [facility] Branch Influenza High Dose 2015-04-04 Completed Unive rsity of 00:00:00 [facility] Influenza High Dose 2015-04-04 Completed Unive rsity of 00:00:00 [facility] Influenza High Dose 2015-04-04 Completed Unive rsity of 00:00:00 [facility] Influenza High Dose 2015-04-04 Completed Unive rsity of 00:00:00 [facility] Influenza High Dose 2015-04-04 Completed Unive rsity of 00:00:00 [facility] Zoster(Zostavax)( 2012-04-23 Completed Unive rsity of ingles) 00:00:00 [facility] Zoster(Zostavax)( 2012-04-23 Completed Unive rsity of ingles) 00:00:00 [facility] Zoster(Zostavax)( 2012-04-23 Completed Unive rsity of ingles) 00:00:00 [facility] Zoster(Zostavax)( 2012-04-23 Completed Unive rsity of ingles) 00:00:00 [facility] Zoster(Zostavax)( 2012-04-23 Completed Unive rsity of ingles) 00:00:00 [facility] Zoster(Zostavax)( 2012-04-23 Completed Unive rsity of ingles) 00:00:00 [facility] Zoster(Zostavax)( 2012-04-23 Completed Unive rsity of ingles) 00:00:00 [facility] Zoster(Zostavax)( 2012-04-23 Completed Unive rsity of ingles) 00:00:00 [facility] Zoster(Zostavax)( 2012-04-23 Completed Unive rsity of ingles) 00:00:00 [facility] Zoster(Zostavax)( 2012-04-23 Completed Unive rsity of ingles) 00:00:00 [facility] Zoster(Zostavax)( 2012-04-23 Completed Unive rsity of ingles) 00:00:00 [facility] Zoster(Zostavax)( 2012-04-23 Completed Unive rsity of ingles) 00:00:00 [facility] Vital Signs Vital Name Observation Time Observation Value Comments Source Systolic blood 2023-02-06 16:06:00 138 mm[Hg] Univer sity of pressure [facility] Diastolic blood 2023-02-06 16:06:00 89 mm[Hg] Unive rsity of pressure [facility] Heart rate 2023-02-06 16:06:00 92 /min Universi ty [facility] Body temperature 2023-02-06 16:06:00 37.17 Ritu Univ ersity [facility] Respiratory rate 2023-02-06 16:06:00 16 /min Univ [facility] Oxygen saturation in 2023-02-06 16:06:00 99 /min University of Arterial blood by [facility] Pulse oximetry Branch Body height 2023-02-06 14:25:00 172.7 cm Universi ty [facility] Body weight 2023-02-06 14:25:00 61.236 kg [facility] BMI 2023-02-06 14:25:00 20.53 kg/m2 Universi [facility] Systolic blood 2023-01-30 19:51:00 141 mm[Hg] Univer sity of pressure [facility] Diastolic blood 2023-01-30 19:51:00 95 mm[Hg] Unive rsity of pressure [facility] Heart rate 2023-01-30 19:51:00 116 /min Universi ty [facility] Oxygen saturation in 2023-01-30 19:51:00 97 /min University of Arterial blood by [facility] Pulse oxim[facility] Respiratory rate 2023-01-30 19:50:00 18 /min Univ [facility] Body height 2023-01-30 19:50:00 172.7 cm Universi ty [facility] Body weight 2023-01-30 19:50:00 61.236 kg [facility] BMI 2023-01-30 19:50:00 20.53 kg/m2 [facility] Systolic blood 2023-01-21 16:29:00 146 mm[Hg] Univer sity of [facility] Diastolic blood 2023-01-21 16:29:00 91 mm[Hg] Unive rsity of [facility] Heart rate 2023-01-21 16:28:00 93 /min [facility] Respiratory rate 2023-01-21 16:28:00 18 /min [facility] Body height 2023-01-21 16:28:00 172.7 cm [facility] Body weight 2023-01-21 16:28:00 59.92 kg [facility] BMI 2023-01-21 16:28:00 20.09 kg/m2 [facility] Oxygen saturation in 2023-01-21 16:28:00 99 /min University of Arterial blood by [place] [facility] Pulse oximetry Branch Systolic blood 2023-01-09 19:33:00 130 mm[Hg] Univer sity of [facility] Diastolic blood 2023-01-09 19:33:00 86 mm[Hg] Unive rsity of [facility] Heart rate 2023-01-09 19:33:00 99 /min [facility] Body temperature 2023-01-09 19:33:00 36.83 Ritu [facility] Body height 2023-01-09 19:33:00 172.7 cm [facility] Body weight 2023-01-09 19:33:00 60.147 kg [facility] BMI 2023-01-09 19:33:00 20.16 kg/m2 [facility] Oxygen saturation in 2023-01-09 19:33:00 97 /min University of Arterial blood by [place] [employer] randall Pulse oximetry Branch Systolic blood 2023-01-01 14:45:00 139 mm[Hg] Univer sity of [facility] Diastolic blood 2023-01-01 14:45:00 93 mm[Hg] Unive rsity of [facility] Heart rate 2023-01-01 14:40:00 114 /min [facility] Respiratory rate 2023-01-01 14:40:00 17 /min [facility] Body height 2023-01-01 14:40:00 172.7 cm [facility] Body weight 2023-01-01 14:40:00 60.464 kg [facility] BMI 2023-01-01 14:40:00 20.27 kg/m2 [facility] Oxygen saturation in 2023-01-01 14:40:00 97 /min University of Arterial blood by [place] [employer] randall Pulse oximetry Branch Systolic blood 2022-11-09 12:53:00 114 mm[Hg] Univer sity of [facility] Diastolic blood 2022-11-09 12:53:00 85 mm[Hg] Unive rsity of [facility] Heart rate 2022-11-09 12:53:00 112 /min [facility] Body temperature 2022-11-09 12:53:00 36.94 Ritu [facility] Respiratory rate 2022-11-09 12:53:00 16 /min [facility] Body height 2022-11-09 12:53:00 172.7 cm [facility] Body weight 2022-11-09 12:53:00 61.236 kg [facility] BMI 2022-11-09 12:53:00 20.53 kg/m2 [facility] Oxygen saturation in 2022-11-09 12:53:00 99 /min University of Arterial blood by [place] [employer] randall Pulse oximetry Branch Systolic blood 2022-10-24 19:57:00 133 mm[Hg] Univer sity of [facility] Diastolic blood 2022-10-24 19:57:00 99 mm[Hg] Unive rsity of pressure [facility] Heart rate 2022-10-24 19:57:00 109 /min [facility] Body temperature 2022-10-24 19:57:00 36.83 Ritu [facility] Respiratory rate 2022-10-24 19:57:00 18 /min [facility] Body height 2022-10-24 19:57:00 172.7 cm [facility] Body weight 2022-10-24 19:57:00 [facility] 2022-10-24 19:57:00 20.53 kg/m2 [facility] Oxygen saturation in 2022-10-24 19:57:00 98 /min University Arterial blood by [facility] Pulse oxim[facility] Procedures Procedure Date / Time Performed Performing Clinician Sour e CONSENT/REFUSAL FOR 2023-02-06 14:20:24 Doctor Unassigned, No [facility] [place] [facility] TREATMENT ASSIGNMENT OF BENEFITS 2023-01-01 14:18:39 Doctor Unassigned, No [facility] CONSENT/REFUSAL FOR 2022-11-09 12:40:46 Doctor Unassigned, No [facility] [place] [facility] Name [facility] TREATMENT CONSENT/REFUSAL FOR 2022-10-24 19:55:51 Doctor Unassigned, No [facility] [place] [facility] TREATMENT Encounters Start End Encounter Admission Attending Care Care Encounter Source Date/Time Date/Time Type Type Clinicians Facility Department ID 2023-02-06 2023-02-06 Emergency X [facility] ERT [id number] Univers 09:27:00 11:35:00 MECHELLE rojas [facility] 2023-02-06 2023-02-06 Emergency [facility] [id number] Univers 09:27:00 11:35:00 Mechelle VELAZQUEZ [id number] ity [facility] [id number] [facility] [id number] [facility] 084 Branch 2023-01-30 2023-01-30 Outpatient R MANDO [facility] [id number] Univers 15:15:00 16:48:37 BETO rojas of [facility] 2023-01-30 2023-01-30 Office Mando NDYAMILET PALMER [id number] Univers 15:15:00 16:48:37 Visit Beto BROWN [id number] it y of [facility] [id number] [facility] [id number] [address] 2023-01-21 2023-01-21 Outpatient R ERIK FUNEZ [facility] [id number] Univers 10:00:00 12:45:13 ERIK FUNEZ [facility] 2023-01-21 2023-01-21 Office Armin [facility] [id number] Univers 10:00:00 12:45:13 Visit Erik [facility] [id number] ity of [facility] 4.2.7.2.686 Franki as SELVIN?BLEA [id number] Sc dicjustin MADDOX [address] [place] MEDICAL OFFICE [facility] 2023-01-09 2023-01-09 Outpatient R FREDY LYN [facility] [id number] Univers 14:40:00 15:23:17 HAYDENLYN Arevalo [facility] 2023-01-09 2023-01-09 [facility] [id number] Univers 14:40:00 15:23:17 Visit [place] [id number] ity of [place] 4.2.7.2.686 Franki as SELVIN?BLEA [id number] Sc dicjustin MADDOX 044 [facility] OFFICE [facility] 2023-01-01 2023-01-01 [facility] [id number] Univers 10:22:04 23:59:00 Encounter , Nargis [facility] [id number] ity of [place] 4.2.7.2.686 Franki as SLEVIN?BLEA [id number] Sc dicjustin [place] [address] [place] MEDICAL OFFICE [facility] 2023-01-01 2023-01-01 Outpatient R [facility] [id number] Univers 10:22:04 23:59:00 , NARGIS arvealo [facility] 2023-01-01 2023-01-01 Office [facility] [id number] Univers 10:00:00 10:22:24 Visit , Nargis [facility] [id number] ity of [place] [id number] Franki as SELVIN?BLEA [id number] Sc dical [address] MEDICAL OFFICE BUILDING 2023-01-01 2023-01-01 Orders Doctor ASHWIN [id number] Univers 00:00:00 00:00:00 Only Unassigned, LORI [id number] ity of [place] [facility] 4.2.7.2.686 Franki [id number] [facility] 009 Branch 2022-11-09 2022-11-09 Emergency [facility] [id number] Univers 07:59:00 09:21:00 FOLUSHO ity of [facility] 2022-11-09 2022-11-09 [facility] [id number] Univers 07:59:00 09:21:00 Pollyo Dillan VELAZQUEZ [id number] ity of [place] [id number] [facility] [place] [id number] [place] [id number] [place] 2022-10-24 2022-10-24 Emergency X IBIKUNLE, [facility] ERT [id number] Univers 14:59:00 16:21:00 FOLUSHO ity of [facility] 2022-10-24 2022-10-24 Emergency [facility] [id number] Univers 14:59:00 16:21:00 [facility] Dillan VELAZQUEZ [id number] ity of [place] 4.2.7.2.686 [facility] [id number] [address] Results This patient has no known results. Notes Date/Time Note Provider Source 2023-02-06 09:23:23-00:00 Formatting of this note migh t be different from the original. Ricki Simno RN [facility] - Health Patient here for bilateral a nkle pain, patient concerned about swelling in his feet. Electronically signed by Ricki Simon RN at 0 02/06/2023 9:25 AM CDT
[2023-02-09] MEDS ORDERED: IBUPROFEN 400 MG TAB ONE (15:03)
--- NOTE | 2023-02-09 17:26 | RAD REPORT ---
EXAM DESCRIPTION: US - Extrem Venous W Compress Hua - 02/09/2023 4:17 pm CLINICAL HISTORY: Pain COMPARISON: None. TECHNIQUE: Real-time sonographic evaluation of the bilateral lower extremity deep venous systems was performed. FINDINGS: Normal compressibility, flow augmentation, phasic flow and spontaneous flow is identified in both the left and right lower extremity deep venous systems. No intraluminal filling defects seen. IMPRESSION: No DVT in either lower extremity.
--- NOTE | 2023-02-09 17:44 | RAD REPORT ---
EXAM DESCRIPTION: US - Lower Extremity Arterial Bilat - 02/09/2023 4:16 pm CLINICAL HISTORY: PAIN COMPARISON: Lower Extremity Arterial Bilat dated 10/28/2022 TECHNIQUE: Bilateral lower extremity arterial Doppler examination was performed with ana macedo FINDINGS: Triphasic waveforms are seen along the common femoral through popliteal arteries on the right, and co mmon femoral and superficial femoral arteries on the left. Biphasic waveforms present along the right posterior tibial and dorsalis pedis arteries, and left popliteal and posterior tibial arteries. [place] phasic waveforms along the left dorsalis pedis artery. Up to moderate atherosclerotic plaque formation along the right common femoral and popliteal arteries , with minimal plaque formation on the left. IMPRESSION: Up to moderate peripheral vascular disease, worse on the left, as above.
--- NOTE | 2023-02-09 18:03 | ER ---
Nurse's Notes [facility]ly [facility] Name: Curt Crawley Age: 77 yrs Sex: Male : 1945 Arrival Date: 02/09/2023 Time: 13:46 Bed 14 Private MD: Diagnosis: Pain in right foot;Pain in left foot Presentation: 02/09 14:13 Chief complaint: Patient states: Burning sensation to bilateral feet x4 months. jl7 Coronavirus screen: At this time, the client does not indicate any symptoms associated with coronavirus-19. Ebola Screen: No symptoms or risks identified at this time. Initial Sepsis Screen: Does the patient meet any 2 criteria? No. Patient's initial sepsis screen is negative. Does the patient have a suspected source of infection? No. Patient's initial sepsis screen is negative. Risk Assessment: Do you want to hurt yourself or someone else? Patient reports no desire to harm self or others. Onset of symptoms is unknown. 14:13 Method Of Arrival: Ambulatory [facility] 14:13 Acuity: JENS 3 jl7 Triage Assessment: 14:15 General: Appears in no apparent distress. uncomfortable, Behavior is calm, cooperative, jl7 appropriate for age. Pain: Complains of pain in right foot and left foot. Historical: - Allergies: 14:15 No Known Allergies; jl7 - Home Meds: 14:15 gabapentin 300 mg oral capsule [Active]; levothyroxine oral [Active]; jl7 - PMHx: 14:15 skin cancer; Hypothyroidism; neuropathy; Hypercholesterolemia; jl7 - PSHx: 14:15 Appendectomy; prostate; Repair of inguinal hernia; jl7 - Immunization history:: Adult Immunizations unknown. - Social history:: Smoking status: unknown. Screenin:01 [facility] ED Fall Risk Assessment (Adult) History of falling in the last 3 months, ld1 including since admission No falls in past 3 months (0 pts). Abuse screen: Denies threats or abuse. Denies injuries from another. Nutritional screening: No deficits noted. Tuberculosis screening: No symptoms or risk factors identified. Assessment: 15:01 General: Appears in no apparent distress. comfortable, Behavior is calm, cooperative, ld1 appropriate for age. Pain: Complains of pain in right foot and left foot Pain does not radiate. Pain currently is 8 out of 10 on a pain scale. Quality of pain is described as throbbing, Pain began suddenly. Neuro: Level of Consciousness is awake, alert, obeys commands, Oriented to person, place, time, situation. Cardiovascular: Capillary refill < 3 seconds Patient's skin is warm and dry. Respiratory: Airway is patent Respiratory effort is even, unlabored. GI: Abdomen is flat, non-distended. : No signs and/or symptoms were reported regarding the genitourinary system. EENT: No signs and/or symptoms were reported regarding the EENT system. Derm: No signs and/or symptoms reported regarding the dermatologic system. Musculoskeletal: No signs and/or symptoms reported regarding the musculoskeletal system. 17:10 Reassessment: Patient appears in no apparent distress at this time. No changes from ld1 previously documented assessment. Patient and/or family updated on plan of care and expected duration. Pain level reassessed. Patient is alert, oriented x 3, equal unlabored respirations, skin warm/dry/pink. Vital Signs: 14:13 BP 130 / 83; Pulse 102; Resp 15; Temp 98.4; Pulse Ox 98% ; jl7 15:01 BP 132 / 83; Pulse 77; Resp 18; Pulse Ox 98% on R/A; ld1 17:10 BP 139 / 79; Pulse 74; Resp 18; Pulse Ox 98% on R/A; ld1 ED Course: 13:48 Patient arrived in ED. mr 14:15 Triage completed. jl7 14:15 Arm band placed on right wrist. jl7 14:21 Alex[facility] Mcneill [facility]. cp 14:21 Alexi Guardado MD is Attending Physician. cp 14:27 Sandra Weaver, LANIE is Primary Nurse. ld1 15:01 Patient has correct armband on for positive identification. Placed in gown. Bed in low ld1 position. Call light in reach. Side rails up X2. electronic device monitor on. Pulse ox on. NIBP on. Door closed. Noise minimized. Warm blanket given. 15:01 No provider procedures requiring assistance completed. ld1 16:18 US Lower Extremity Arterial Bilateral In Process Unspecified. EDMS 16:19 US Extremity Venous W Compression Hua In Process Unspecified. EDMS 18:12 Patient did not have IV access during this emergency room visit. ld1 Administered Medications: 14:56 Drug: Ibuprofen PO 800 mg Route: PO; ld1 Medication: 15:01 VIS not applicable for this client. ld1 Outcome: 18:03 Discharge ordered by . danielle 18:12 Discharged to home ambulatory. ld1 18:12 Condition: stable 18:12 Discharge instructions given to patient, Instructed on discharge instructions, follow up and referral plans. Demonstrated understanding of instructions, follow-up care. 18:12 Patient left the ED. ld1 Signatures: Dispatcher [employer] EDOmaira Zamora mr Alexi Mcneill PA PA cp Leal, Jahala RN RN jl7 Sandra Weaver RN RN ld1
--- NOTE | 2023-02-09 18:03 | EDPHYS ---
Physician Documentation [facility] Name: Curt Crawley Age: 77 yrs Sex: Male : 1945 Arrival Date: 02/09/2023 Time: 13:46 Bed 14 Private MD: Alexi Jovel HPI: 02/09 15:00 This 77 yrs old Male presents to ER via Ambulatory with complaints of Foot Pain. cp 15:00 The patient presents with pain, that is chronic. The complaints affect the right foot cp and left foot. Onset: The symptoms/episode began/occurred 4 month(s) ago. 15:00 Associated signs and symptoms: Pertinent negatives calf tenderness, fever, swelling, cp warmth. Treatment prior to arrival includes: no previous treatment. Patient is a 77-year-old male with past medical history significant for hyperlipidemia, hypothyroidism and neuropathy. Patient reports bilateral foot pain for the past 4 months. Patient reports she seen multiple physicians at the [facility] to include a bike technician who recommended shoe inserts. Patient reports purchasing several shoe inserts that seem to make the pain worse so he stopped using them. Patient reports he has been referred to vascular for evaluation. Patient is a non-smoker and denies fever, chills. Patient does report at times that his feet do appear discolored. Historical: - Allergies: 14:15 No Known Allergies; jl7 - Home Meds: 14:15 gabapentin 300 mg oral capsule [Active]; levothyroxine oral [Active]; jl7 - PMHx: 14:15 skin cancer; Hypothyroidism; neuropathy; Hypercholesterolemia; jl7 - PSHx: 14:15 Appendectomy; prostate; Repair of inguinal hernia; jl7 - Immunization history:: Adult Immunizations unknown. - Social history:: Smoking status: unknown. ROS: 15:05 Cardiovascular: Negative for chest pain, edema, palpitations. cp 15:05 Eyes: Negative for injury, pain, redness, and discharge. cp 15:05 Constitutional: Negative for body aches, chills, fever, poor PO intake. 15:05 Back: Negative for pain at rest, pain with movement. 15:05 MS/extremity: Positive for pain, of the right foot and left foot, Negative for injury or acute deformity, paresthesias. 15:05 Skin: Negative for cellulitis, rash. 15:05 Neuro: Negative for altered mental status, dizziness, headache, weakness. 15:05 All other systems are negative. Exam: 15:10 Constitutional: The patient appears in no acute distress, alert, awake, non-toxic, well cp developed, well nourished. 15:10 Head/Face: Normocephalic, atraumatic. cp 15:10 Eyes: Periorbital structures: appear normal, Conjunctiva: normal, no exudate, no injection, Lids and lashes: appear normal, bilaterally. 15:10 ENT: External ear(s): are unremarkable, Nose: is normal, Mouth: Lips: moist, Oral mucosa: pink and intact, moist, Posterior pharynx: is normal, airway is patent. 15:10 Chest/axilla: Inspection: normal. 15:10 Cardiovascular: Rate: normal, Rhythm: regular, Edema: is not appreciated, JVD: is not appreciated. 15:10 Respiratory: the patient does not display signs of respiratory distress, Respirations: normal, no use of accessory muscles, no retractions, labored breathing, is not present, Breath sounds: are clear throughout, no decreased breath sounds. 15:10 Back: pain, is absent, ROM is normal, Straight leg raises: of both lower extremities does not illicit pain. 15:10 Musculoskeletal/extremity: Extremities: grossly normal except: noted in the right foot and left foot: pain and tenderness along plantar surface of feet, Perfusion: the extremity is normally perfused throughout. 15:10 Skin: cellulitis, is not appreciated, no rash present. Vital Signs: 14:13 BP 130 / 83; Pulse 102; Resp 15; Temp 98.4; Pulse Ox 98% ; jl7 15:01 BP 132 / 83; Pulse 77; Resp 18; Pulse Ox 98% on R/A; ld1 17:10 BP 139 / 79; Pulse 74; Resp 18; Pulse Ox 98% on R/A; ld1 MDM: 14:21 Patient medically screened. cp 15:00 Differential diagnosis: dvt, cellulitis, fracture, pad, fasciitis. cp 18:02 Data reviewed: vital signs, nurses notes, radiologic studies, ultrasound. cp 18:02 I considered the following discharge prescriptions or medication management in the emergency department Medications were administered in the Emergency Department. See MAR. Counseling: I had a detailed discussion with the patient and/or guardian regarding the historical points, exam findings, and any diagnostic results supporting the discharge/admit diagnosis, radiology results, the need for outpatient follow up, a family practitioner, to return to the emergency department if symptoms worsen or persist or if there are any questions or concerns that arise at home. ED course: Vital signs stable. Reviewed results of ultrasound studies today that were negative for DVT and or arterial occlusion. Patient reports he takes Neurontin 2 tablets in the evening and 1 tablet in the morning and again in the afternoon. Discussed increasing his Neurontin medication to 2 tablets 3 times a day and then to follow-up with his primary care physician.. 02/09 14:51 Order name: Lower Extremity Arterial Bilateral; Complete Time: 17:48 cp 02/09 14:51 Order name: US Extremity Venous W Compression Hua; Complete Time: 17:48 cp Administered Medications: 14:56 Drug: Ibuprofen PO 800 mg Route: PO; ld1 Disposition Summary: 02/09/23 18:03 Discharge Ordered Location: Home cp Problem: an ongoing problem cp Symptoms: have improved cp Condition: Stable cp Diagnosis - Pain in right foot cp - Pain in left foot cp Followup: cp - With: Private Physician - When: 1 week - Reason: Recheck today's complaints Discharge Instructions: - Discharge Summary Sheet cp - Peripheral Neuropathy cp - Foot Pain cp Forms: - Medication Reconciliation Form cp - Thank You Letter cp - Antibiotic Education cp - Prescription Opioid Use cp - Patient Portal Instructions cp - Leadership Thank You Letter cp Signatures: Dispatcher [employer] EDAlexi Shipman PA PA cp Noble Sage RN RN jl7 Sandra Weaver RN RN ld1
[2023-02-09 18:20] VITALS: TEMP 98.4; O2SAT 98
[2023-02-09 18:23] VITALS: BP 139/79
== END 2023-02-09 18:12 | disposition home or self-care (01) ==
LOC: ER 13:46
DX: M79.671 Pain in right foot (principal); M79.672 Pain in left foot
CPT/HCPCS: 93925; 93970; 99284